=== PATIENT | male | born 1945 | race Caucasian/White ===

== ENCOUNTER 2019-10-08 12:13 | Outpatient (CLI) | payer MEDICARE, SELFPAY ==
--- NOTE | ~2019-10-08 | MR_ITS ---
EXAMINATION: MR shoulder RT w con DATE: 10/08/2019 14:42 INDICATION: Right shoulder pain. TECHNIQUE: Magnetic resonance imaging (MRI) of the right shoulder was performed without intravenous c ontrast after intra-articular injection of contrast (MR arthrogram). Sequences included axial T1-weig hted FS FSE and T2-weighted FS FSE, coronal-oblique T1-weighted FS FSE and T2-weighted FS FSE, sagitt al-oblique T1-weighted FSE and T2-weighed FS FSE, and ABER T1-weighted FS FSE. COMPARISON: Right shoulder radiographs 04/03/2019 FINDINGS: Coracoacromial arch: The acromion undersurface is flat in morphology (type I). There are changes of distal clavicle resect ion and acromioplasty. There is a large volume of fluid in the subacromial/subdeltoid bursa. Rotator cuff: There is severe supraspinatus and infraspinatus tendinopathy with extensive partial thickness tearing . There is a full-thickness tear of the conjoined portion of the tendon measuring 7 mm anterior to po sterior by 1.6 cm proximal to distal. Teres minor tendon is normal. Subscapularis tendon demonstrates severe tendinopathy distally where there is an interstitial tear of the superior tendon with medial displacement of the biceps tendon into the tear. There is mild fatty atrophy of supraspinatus and inf raspinatus muscle bellies. Biceps tendon and glenoid labrum: There is severe tendinopathy and partial tear of biceps tendon, which is medially displaced into the subscapularis tendon tear. There is degeneration of the glenoid labrum without well-defined tear. Fluid: The glenohumeral joint is well distended. MultiHance is not detectable in the fluid, likely an error in injectate preparation. Bones/cartilage: The glenoid cartilage is normal. Humeral head cartilage is normal. IMPRESSION: 1. Severe rotator cuff tendinopathy with full-thickness tear of supraspinatus and infraspinatus tendo ns and partial tear of subscapularis tendon. 2. Severe tendinopathy and partial tear of proximal biceps tendon, which is medially displaced into t he subscapularis tendon tear. Reviewed, dictated and finalized at location A. WORKER IMPRESSION: 1. Severe rotator cuff tendinopathy with full-thickness tear of supraspinatus a nd infraspinatus tendons and partial tear of subscapularis tendon. 2. Severe tendinopathy and partial tear of proximal biceps tendon, which is med ially displaced into the subscapularis tendon tear.
--- NOTE | ~2019-10-08 | XR_ITS ---
EXAMINATION: XR fl inj shoulder RT - MR/CT DATE: 10/08/2019 14:09 INDICATION: Right shoulder pain. History of rotator cuff repair. TECHNIQUE: A time-out was performed to verify the patient's name, date of , and procedure to b e performed. The procedure including the risks, benefits, and alternatives was discussed with the pat ient. Risks discussed included bleeding and infection. The patient understood the risks and agreed to proceed. The skin overlying the right shoulder joint was prepped and draped in usual sterile fashion . Anesthetic was administered with 1% lidocaine subcutaneously. A 22 G needle was advanced under fl uoroscopic guidance into the joint. Subsequently, injectate consisting of 12 mL of 1:200 Multihance, 1:4 1% lidocaine, and 1:4 Omnipaque 240 was instilled. The needle was removed and the entry site wa s cleaned and dressed. There were no immediate complications. Fluoroscopy exposure time was 0.0 aicha albert. The total number of images was 2. FINDINGS: Real-time fluoroscopy demonstrates the needle and contrast in the right glenohumeral joint. IMPRESSION: 1. Successful right glenohumeral joint injection of contrast for subsequent MR arthrography. Reviewed, dictated and finalized at location A. ER SERVICE 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
== END 2019-10-08 12:14 | disposition home or self-care (01) ==
LOC: ANHIMG 12:30
PROVIDERS: PCP Internal Medicine; Visit Provider Orthopaedic Surgery
DX: M75.101 Unspecified rotator cuff tear or rupture of right shoulder, not specified as traumatic (principal)
CPT/HCPCS: 23350; 73222; 77002; A9577; Q9966

== ENCOUNTER 2019-10-15 00:41 | Day surgery (SDC) | payer MEDICARE, SELFPAY ==
[2019-10-12 10:55] VITALS: BMI 31.5
[2019-10-15] VITALS (7 sets, daily range): BP systolic 126–140; BP diastolic 64–71; PULSE 78–88; RESP 16–18; TEMP 36.2–36.7; O2SAT 93–98
[2019-10-15] MEDS: LACTATED RINGERS 1,000 ML 30 ML IV CONT ×2 (06:45→08:51)
--- NOTE | 2019-10-15 07:11 | WPDANESEPPF ---
Anes - Initial Pre Proc Eval Procedure: Operation Date: 10/15/19 07:30 Proposed Procedures p Right Shoulder Arthroscopy with Debridement - Ventura Olvera MD Date/Time: 10/15/19 07:11 Surgeon: Ventura Olvera MD Pre Op Diagnosis: Right shoulder rotator cuff tear Patient Data Age: 74 Gender: M Height: 1.78 m Weight: 99.8 kg Allergies Allergy/AdvReac Type Severity Reaction Status Date / Time No Known Allergies Allergy Verified 10/15/19 06:27 Home Medications Medication Instructions Recorded Confirmed Type atorvastatin 80 mg tablet 80 mg PO DAILY #90 tablet 08/27/19 10/15/19 Rx niacin 500 mg tablet 500 mg PO DAILY #90 tablet 08/27/19 10/15/19 Rx aspirin 81 mg tablet,delayed 81 mg PO DAILY 10/10/19 10/15/19 History release ezetimibe 5 mg PO DAILY 10/12/19 10/15/19 History Patient hx anesthesia problems: none Family hx anesthesia problems: none [facility] Past Medical History Medical History (Updated 10/15/19 @ 07:10 by Capo Paris DO) Actinic keratoses High cholesterol History of basal cell carcinoma (BCC) History of bladder cancer Skin cancer Surgical History Surgical History History of rotator cuff surgery Bilateral - Dr Rene Social History Social History Smoking status: Former smoker Additional smoking assessment comments: Smoked for 30 years Alcohol intake: current Additional living arrangements comments: [place] Gender identity (if verbalized by the patient): Male Anes - Eval Final PreProcedure Day of Procedure 10/15/19 07:11 Patient weight: obese Heart: regular rate and rhythm Lungs: clear to auscultation and normal air movement Airway: Mallampati scale class III Neurological: alert and oriented Last oral intake: >/= 8 hours ASA classification: III Emergent: no Anesthetic plan: proceed Anesthesia type and monitoring: general ETT and standard monitoring Informed Consent: The patient's anesthetic plan and its attendant risks and benefits were discussed with the patient/family/POA. Questions were solicited and answers provided to the satisfaction of the patient/family/POA.
--- NOTE | 2019-10-15 07:13 | WPDHPUPDATE1 ---
History and Physical Update Update Date/Time: 10/15/19 07:13 History and Physical has been reviewed, including an updated exam of the patient. There are NO changes in the patient's condition. Risks, benefits, and alternatives have been discussed and questions answered. Patient agrees to proceed with procedure.
--- NOTE | 2019-10-15 07:23 | SUR.PREOP ---
Discussed ekg with dr barron. Says ekg from january 2018 is ok, no need to repeat.
[2019-10-15] MEDS: ceFAZolin 2 GM/D5W 50 ML 2 GM/50 ML BAG IVPB (07:27)
--- NOTE | 2019-10-15 07:51 | WPDANESPNB ---
Anes - Peripheral Nerve Block Date/Time: 10/15/19 07:51 I have discussed with the patient/family/POA the placement of a peripheral nerve block for post-operative pain management, including associated risks, benefits, complications, and side effects. Alternative methods of post-operative analgesia were detailed. Questions were solicited and answers provided to the satisfaction of the patient/family/POA. Time-Out: A pre-procedural Time-Out was completed immediately before starting the procedure and confirmed: Patient Identification, Site, Procedure, Patient Position and the Availability of Requisite Equipment. Clinical Indications: Acute post-operative pain management requested by the operative surgeon. Nerve Block Insertion Note Anes-nerve block: interscalene right Patient position: supine Skin prep: chlorhexidine Needle: 22 gauge, stimulating, insulated echogenic needle. Needle length: 50 mm Technique: ultrasound Injectate: bupivacaine 0.5% with epi 5 mcg/ml (30cc) Observations: tolerated well Complications: none Procedure start time:: 719 Procedure end time:: 722
[2019-10-15] MEDS: KETOROLAC 15 MG/ML VIAL (*BKC) IV PUSH (08:12)
[2019-10-15] MEDS: BUPIVACAINE/EPINEPHRINE 0.25% 10 ML VIAL 20 ML INFILTRATE (08:21)
--- NOTE | 2019-10-15 08:58 | P.OP_ITS ---
Procedure Note - Detailed Date of procedure: 10/15/19 Pre-op diagnosis: Right shoulder rotator cuff tear Chronic deficiency right rotator cuff Post-op diagnosis: same Procedure performed: Right shoulder arthroscopy with extensive debridement Description of procedure: The patient was identified and proper site identified. In the preop holding area and his used a performed a right upper extremity block. He was then taken to the operating, transferred to the OR table and after general anesthetic induction and intubation placed into the semi beach chair position in the usual manner for a right shoulder procedure. His has was secured taking care to neither rotate or extend the head neck. The right upper extremity was prepped and draped free in the usual sterile fashion. 30 cc of 1 to 310552 epinephrine and saline solution was injected into the subacromial space. 10 cc of 0.25% Marcaine and epinephrine solution was injected in the area of the portals. Posterior portal was established and under direct vi sualization anterior outflow was created. There was extensive significant degenerative changes within the shoulder joint involving the articular surfaces as well as the labrum. There is obvious tear of 50% or better of the rotator cuff with significant retraction almost to the level of the glenoid. This was not very mobile. The scope and outflow were then repositioned in the subacromial space and a lateral working portal was created. Extensive debridement was carried out with shaver and ArthroCare Wand. There was some spurring on the undersurface of the acromion and this was rasped smooth as well. The entire surgical area was irrigated with saline solution and the equipment was removed. Portals were closed with three 0 nylon suture and sterile dressings applied. He tolerated the procedure well. He was awakened, extubated and taken to recovery area in stable condition. There were no known intraoperative complications. Estimated blood loss was negligible. He received perioperative antibiotics. Anesthesia: GLMA and regional Surgeon: Ventura Olvera MD Licensed Electrician: Josue Young Estimated blood loss (mL): 5 Drains: No Packing: No Pathology: none sent Complications: No immediate complications Condition: stable Disposition: PACU
--- NOTE | 2019-10-15 09:23 | SUR.PHASEI ---
0923; PT AWAKE AND ALERT. TALKATIVE. READY TO SEE FAMILY. MEETS DISCHARGE CRITERIA.
== END 2019-10-15 10:15 | disposition home or self-care (01) ==
PROVIDERS: PCP Internal Medicine; Visit Provider Orthopaedic Surgery
PROC: (CPT 29805; principal; 2019-10-15 07:30)
DX: M75.101 Unspecified rotator cuff tear or rupture of right shoulder, not specified as traumatic (principal); G89.18 Other acute postprocedural pain; E78.00 Pure hypercholesterolemia, unspecified; Z85.51 Personal history of malignant neoplasm of bladder; Z85.828 Personal history of other malignant neoplasm of skin; Z79.82 Long term (current) use of aspirin; Z87.891 Personal history of nicotine dependence; E66.9 Obesity, unspecified; Z68.31 Body mass index [BMI] 31.0-31.9, adult
CPT/HCPCS: 29823; 64415; J0131; J0690; J1100; J1170; J1885; J2250; J2370; J2405; J2704; J3010; J7120

== ENCOUNTER 2019-10-31 07:29 | Outpatient (CLI) | payer MEDICARE, SELFPAY ==
--- NOTE | ~2019-10-31 | CT_ITS ---
EXAMINATION: CT abdomen pelvis wo/w con DATE: 10/31/2019 08:20 INDICATION: History of bladder cancer TECHNIQUE: Computed tomography (CT) of the abdomen and pelvis was performed without intravenous contr ast. CT of the abdomen and pelvis was then performed with a total of 130 mL Omnipaque 350 intravenous contrast using a double-bolus technique for simultaneous opacification of the renal parenchyma and r enal collecting system. The dose-length product (DLP) was 1928.83 mGy-cm. Maximum intensity projectio n 3D-reconstructions of the collecting system were created by the technologist at a separate workstat ion. Automated exposure control and iterative reconstruction technique were employed. COMPARISON: 02/03/2018 FINDINGS: Minimal dependent atelectasis is present in the lung bases. The heart size is normal. Punct ate calcifications in otherwise normal appearing liver and spleen likely represent healed granulomato us disease. There is a small sliding hiatal hernia. The pancreas, gallbladder, and adrenal glands are normal. A 2 mm nonobstructing stone of the left kidney upper pole and a 2 mm nonobstructing stone of the right mid kidney. There is a 1.3 cm cyst of the right kidney. There is been interval resection o r treatment of the previously described bladder mass. No suspicious renal or urothelial lesion is alex ntified. A retroaortic right renal vein is noted. No pathologically enlarged abdominal or pelvic lymp h nodes are identified. There is no free intraperitoneal gas or evidence of bowel obstruction. A mode rate volume of colonic stool is present. There is mild lumbar spondylosis. IMPRESSION: 1. Interval treatment of the previously described bladder mass without suspicious renal or urothelial lesion identified. 2. Bilateral nephrolithiasis. Reviewed, dictated and finalized at location A. IMPRESSION: 1. Interval treatment of the previously described bladder mass without suspicio us renal or urothelial lesion identified. 2. Bilateral nephrolithiasis.
[2019-10-31 08:01] LABS: Estimated Glomerular Filt Rate > 60
== END 2019-10-31 07:30 | disposition home or self-care (01) ==
PROVIDERS: PCP Internal Medicine; Visit Provider Urology
DX: C67.9 Malignant neoplasm of bladder, unspecified (principal); N20.0 Calculus of kidney
CPT/HCPCS: 36415; 74178; Q9967

== ENCOUNTER → 2021-08-04 10:15 | Outpatient (REF) | payer MEDICARE, SELFPAY | LOC: ANHLAB 10:15 | PROVIDERS: PCP Internal Medicine; Visit Provider Nurse Practitioner | DX: C44.319 Basal cell carcinoma of skin of other parts of face (principal) | CPT/HCPCS: 88305 ==

== ENCOUNTER → 2021-09-28 07:19 | Outpatient (REF) | payer MEDICARE, SELFPAY | LOC: ANHLAB 07:19 | PROVIDERS: PCP Internal Medicine; Visit Provider Nurse Practitioner | DX: C44.319 Basal cell carcinoma of skin of other parts of face (principal) | CPT/HCPCS: 88305; 88331 ==

== ENCOUNTER 2022-08-10 12:18 | Outpatient (NON) | payer MEDICARE, SELFPAY | END 2022-08-10 12:19 | disposition home or self-care (01) | PROVIDERS: PCP Internal Medicine; Visit Provider Nurse Practitioner | DX: D49.2 Neoplasm of unspecified behavior of bone, soft tissue, and skin (principal); L81.4 Other melanin hyperpigmentation | CPT/HCPCS: 88305 ==

== ENCOUNTER 2023-06-30 13:19 | Outpatient (CLI) | payer MEDICARE, SELFPAY ==
--- NOTE | ~2023-06-30 | XR_ITS ---
EXAMINATION: XR abdomen/kub 1V DATE: 06/30/2023 13:56 INDICATION: Gross hematuria TECHNIQUE: A supine view of the abdomen on 2 radiographs was obtained. COMPARISON: CT dated 10/31/2019 FINDINGS: No dilated loops of gas-filled bowel to suggest obstruction. No definitive urolithiasis. Couple uncha nged small phleboliths in the pelvis. Mild to moderate lumbar spondylosis. Bone islands at the right femoral head and neck. Mild bilateral hip and sacroiliac osteoarthritis. IMPRESSION: 1. No evident urolithiasis. Reviewed, dictated and finalized at location A. 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 No evident urolithiasis.
--- NOTE | ~2023-06-30 | CT_ITS ---
EXAMINATION: CT abdomen pelvis wo/w con DATE: 06/30/2023 14:22 INDICATION: Gross hematuria. TECHNIQUE: Computed tomography (CT) of the abdomen and pelvis was performed without and with intraven ous contrast using a total of 130 mL Omnipaque-350 intravenous contrast with a double-bolus technique for simultaneous opacification of the renal parenchyma and renal collecting system. Automated exposu re control and iterative reconstruction technique were employed. The dose-length product was 1675.82 mGy-cm. COMPARISON: CT abdomen and pelvis 10/31/2019, 02/03/18 FINDINGS: The visualized portions of the lung bases demonstrate mild atelectasis and mild chronic interstitial lung disease. No pleural effusion. The heart size is normal. There are coronary artery calcifications . No pericardial effusion. Calcified right hilar lymph nodes are consistent with old granulomatous di sease. Calcifications in the liver and spleen are consistent with old granulomatous disease. The gall bladder, pancreas, and adrenal glands are normal. There are cysts in the kidneys measuring up to 15 m m on the right. There is a 2 mm stone in left kidney. The ureters are normal in size. Left ureter is not well opacified distally. There is a 6.0 x 2.0 cm enhancing mass in the bladder on the left, consi stent with urothelial carcinoma. The prostate is severely enlarged. There are bilateral inguinal tu ias containing fat. There is diverticulosis of the colon without evidence of diverticulitis. The appe ndix is not visualized. There is mild aortic atherosclerosis. There are no pathologically enlarged ly mph nodes. There is no free intraperitoneal fluid. There is moderate lumbar spondylosis. IMPRESSION: 1. Recurrent left-sided bladder mass, consistent with urothelial carcinoma. 2. Small nonobstructing left kidney stone. Reviewed, dictated and finalized at location A. RIOR HORTICULTURIST
[2023-06-30 14:05] LABS: Estimated Glomerular Filt Rate > 60
== END 2023-06-30 13:20 | disposition home or self-care (01) ==
LOC: ANHIMG 13:30
PROVIDERS: PCP Nurse Practitioner; Visit Provider Nurse Practitioner Adult Health
DX: R31.0 Gross hematuria (principal); N20.0 Calculus of kidney
CPT/HCPCS: 74018; 74178; Q9967

== ENCOUNTER 2023-08-11 14:23 | Outpatient (NON) | payer MEDICARE, SELFPAY | END 2023-08-11 14:24 | disposition home or self-care (01) | PROVIDERS: PCP Nurse Practitioner; Visit Provider Nurse Practitioner | DX: D48.5 Neoplasm of uncertain behavior of skin (principal) | CPT/HCPCS: 88305 ==

== ENCOUNTER 2023-08-26 08:53 | Outpatient (CLI) | payer MEDICARE, SELFPAY ==
--- NOTE | 2023-08-26 09:42 | ECG_ITS ---
Measurements Intervals [place] Rate: 68 P: -58 [place]: 134 QRS: 64 QRSD: 129 T: 30 QT: 417 QTc: 446 Interpretive Statements SINUS OR ECTOPIC ATRIAL RHYTHM RIGHT BUNDLE BRANCH BLOCK BASELINE ARTIFACT- I, II, III, AVL, AVF ABNORMAL ECG NO PREVIOUS ECG AVAILABLE FOR COMPARISON Electronically Signed On 08-26-2023 10:27:19 CORONARY CLINICAL SPECIALIST by Martin Toro D.O.
== END 2023-08-26 08:54 | disposition home or self-care (01) ==
PROVIDERS: PCP Nurse Practitioner; Visit Provider Anesthesiology
DX: E78.2 Mixed hyperlipidemia (principal); Z01.818 Encounter for other preprocedural examination; I45.10 Unspecified right bundle-branch block
CPT/HCPCS: 93005

== ENCOUNTER 2023-08-30 07:00 | Outpatient (NON) | payer MEDICARE, SELFPAY | END 2023-08-30 07:01 | disposition home or self-care (01) | LOC: ANHLAB 08-31 12:06 | PROVIDERS: PCP Nurse Practitioner; Visit Provider Nurse Practitioner | DX: L72.0 Epidermal cyst (principal) | CPT/HCPCS: 88304 ==

== ENCOUNTER 2023-09-01 03:31 | Day surgery (SDC) | payer MEDICARE, SELFPAY ==
[2023-08-26 08:20] VITALS: BMI 29.3
--- NOTE | 2023-08-26 08:27 | PC.NURSE ---
PRE-OP INSTRUCTIONS, PLEASE READ CAREFULLY Report to the Outpatient Waiting Room, entrance under the green pavilion located off [facility], at time _1200_ on date _09/01/23_. Planned Procedure Time: _2 PM_. Time changes happen often and if your time is changed the preop area will call you the afternoon before. - You and your visitor will be asked to self-screen and do not enter if you have any COVID symptoms. - A mask is optional within the hospital at this time. Patients may have clear liquids (water, carbonated beverages, clear teas, apple juice) until 3 hours prior to surgery (1100 AM) with a maximum of 20 ounces. - No food from midnight until time of surgery Take the following medications with a SIP of water the morning of surgery: _NONE_ DO NOT STOP ANY OF YOUR OTHER PRESCRIPTION MEDICATIONS PRIOR TO SURGERY ?EXCEPT THE FOLLOWING Medications to discontinue per DR. VIDALSE - _ASPIRIN, PATIENT STATES ALREADY STOPPING, last dose taken 08/25/23_ Please no make-up, nail welsh, hairspray, perfume, deodorant, or body powder the day of surgery. No jewelry (including any body piercings) or valuables the day of surgery, leave them at home. Please take a shower or bath the night before, or the morning of, surgery with an antibacterial soap. Wear comfortable, loose fitting clothing. - Jewelry must be removed prior to entering the operating room. Rings and piercings that are not removed may be cut off. - The hospital will not accept responsibility for valuables. - Please leave all valuables, including medications, at home the day of surgery. If you are going home after surgery, a licensed water truck driver must drive you home. - NO public transportation without another adult if you receive anesthesia. - We recommend that an adult stay with you for 24 hours following discharge. - We also recommend that you do not drive, make important decision, drink alcoholic beverages, or take any drugs that were not prescribed by your health care provider for at least 24 hours after your discharge time. Follow any additional instructions given to you from your surgeon. If you or anyone in your household have experienced Covid symptoms in the past week, please notify your surgeon or the nurse liaison at the phone number below for possible testing. Telephone instructions given to _PATIENT_and asked if any additional questions and then verbalized understanding. Patient advised to call surgeon office or pre surgery nurse liaison [phone] if any additional questions.
--- NOTE | 2023-08-31 12:31 | WPDANESEPPF ---
Anes - Initial Pre Proc Eval Procedure: Operation Date: 09/01/23 12:00 Proposed Procedures p Cystoscopy with Bladder Biopsy, - Oswald Orozco MD s Possible Trans Urethral Resection Bladder Tumor - Oswald Orozco MD Date/Time: 08/31/23 12:31 Surgeon: Oswald Orozco MD Pre Op Diagnosis: hx bladder CA Patient Data Age: 78 Gender: M Height: 1.78 m Weight: 92.72 kg Allergies Allergy/AdvReac Type Severity Reaction Status Date / Time No Known Allergies Allergy Verified 09/01/23 10:40 Home Medications Medication Instructions Recorded Confirmed Type aspirin 81 mg tablet,delayed 81 mg PO DAILY 10/10/19 09/01/23 History release (Adult Low Dose Aspirin) cholecalciferol (vitamin D3) 125 125 mcg PO DAILY 09/23/21 09/01/23 History mcg (5,000 unit) tablet atorvastatin 80 mg tablet See Rx Instructions .Route 04/13/23 09/01/23 Rx .COMPLEX #90 tabs ezetimibe 10 mg tablet 5 mg PO DAILY #90 tabs 04/13/23 09/01/23 Rx niacin 500 mg tablet See Rx Instructions .Route 04/13/23 09/01/23 Rx .COMPLEX #90 tabs Patient hx anesthesia problems: none Family hx anesthesia problems: none Results Review: All pre-operative results and documents have been reviewed as part of the pre-operative evaluation. [facility] Past Medical History Medical History Actinic keratoses High cholesterol History of basal cell carcinoma (BCC) History of bladder cancer Skin cancer Surgical History Surgical History History of arthroscopy of right shoulder arthroscopic debridement October 2019 History of rotator cuff surgery Bilateral - Dr Rene Social History Social History Smoking packs per day: 2 Smoking cigarettes per day: 40.0 Years smoked: 30 Smoking pack-years: 60.00 Smoking status: Former smoker Tobacco type: cigarettes Second hand tobacco smoke exposure: No Smoking end date: 08/15/93 Additional smoking assessment comments: Smoked for 30 years Alcohol intake: current Alcohol use details: Occasional Substance use: never Substance use type: does not use Lack of Transportation: No Lack of Food: Never True Current Housing: I Have Housing Concerned About Future Housing: No Difficulty Paying Gas/Electric Bills: No Difficulty Paying for Meds: No Currently Unemployed: No Education: High School Diploma/GED Difficulty w/ Childcare or Family Care: No Living arrangements: alone Additional living arrangements comments: [place] Occupation/Education: retired Gender identity (if verbalized by the patient): Male Spiritual care concerns: No Anes - Eval Final PreProcedure Day of Procedure 08/31/23 12:31 Patient weight: overweight Heart: regular rate and rhythm Lungs: clear to auscultation Airway: Mallampati scale class II Neurological: alert and oriented Last oral intake: >/= 8 hours ASA classification: III Emergent: no Anesthetic plan: proceed Anesthesia type and monitoring: general LMA and standard monitoring Results Review: All pre-operative results and documents have been reviewed as part of the pre-operative evaluation. Informed Consent: The patient's anesthetic plan and its attendant risks and benefits were discussed with the patient/family/POA. Questions were solicited and answers provided to the satisfaction of the patient/family/POA.
[2023-09-01] VITALS (8 sets, daily range): BP systolic 145–160; BP diastolic 68–80; PULSE 70–85; RESP 13–18; TEMP 36.4–36.6; O2SAT 94–100
--- NOTE | 2023-09-01 06:28 | WPDHPUPDATE1 ---
History and Physical Update Update Date/Time: 09/01/23 06:28 History and Physical has been reviewed, including an updated exam of the patient. There are NO changes in the patient's condition. Risks, benefits, and alternatives have been discussed and questions answered. Patient agrees to proceed with procedure.
[2023-09-01] MEDS: ceFAZolin 2 GM/D5W 50 ML 2 GM/50 ML BAG IVPB (12:45)
[2023-09-01] MEDS: LIDOCAINE HCL 2% GEL UROJET 10 ML PKG MUCOUS MEM (13:10)
[2023-09-01] MEDS: LACTATED RINGERS 1,000 ML 30 ML IV CONT ×2 (13:43→14:39)
--- NOTE | 2023-09-01 13:50 | W.PM.PROC2 ---
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 Cystoscopy was 1st undertaken with a 21 F rigid cystoscope. He has notable lateral lobe hyperplasia with a 3 cm prostatic urethra. There was a small median lobe. The bladder shows a large papillary neoplasm in the left anterior lateral bladder wall. It is somewhat broad-based but is not sessile in nature (having a characteristic low-grade papillary neoplasm). Using a loop electrode I resected this in its entirety with a attempt made to include detrusor muscle for pathological evaluation of invasion. All chips were evacuated from the bladder. I carefully reinspected the bladder and saw no additional areas of hyperemia or kala neoplasm. There was no significant bleeding from the resected bed. Resectoscope was removed and a 24-F 3 way catheter was placed to continuous irrigation. Efflux was clear at the termination of the procedure. Drains Yes Packing No Pathology None sent Complications No immediate complications
== END 2023-09-01 16:01 | disposition home or self-care (01) ==
PROVIDERS: PCP Nurse Practitioner; Visit Provider Urology
PROC: 0TBB8ZX Excision of Bladder, Via Natural or Artificial Opening Endoscopic, Diagnostic (ICD-10-PCS; CPT 52204; principal; 2023-09-01 12:00)
DX: C67.3 Malignant neoplasm of anterior wall of bladder (principal); N40.1 Benign prostatic hyperplasia with lower urinary tract symptoms; E78.00 Pure hypercholesterolemia, unspecified; I10 Essential (primary) hypertension; Z79.82 Long term (current) use of aspirin; Z98.890 Other specified postprocedural states; Z87.891 Personal history of nicotine dependence; Z85.51 Personal history of malignant neoplasm of bladder; Z85.828 Personal history of other malignant neoplasm of skin
CPT/HCPCS: 52240; 87086; 87147; 87181; 87186; 88108; 88305; 93005; J0690; J1100; J2405; J2704; J3010; J7120

== ENCOUNTER 2023-10-27 00:19 | Day surgery (SDC) | payer MEDICARE, SELFPAY ==
[2023-10-12 15:53] VITALS: BMI 28.8
--- NOTE | 2023-10-12 16:10 | PC.NURSE ---
Report to the Outpatient Waiting Room, entrance under the green pavilion located off [facility], at time __6:30AM on date ___10/27/23____. Planned Procedure Time: __8:30AM . Time changes happen often and if your time is changed the preop area will call you the afternoon before. - You and your visitor will be asked to self-screen and do not enter if you have any COVID symptoms. - A mask is optional within the hospital at this time. Patients may have clear liquids (water, carbonated beverages, clear teas, apple juice) until 3 hours prior to surgery with a maximum of 20 ounces. - No food from midnight until time of surgery. Take the following medications with a SIP of water the morning of surgery: ___NONE DO NOT STOP ANY OF YOUR OTHER PRESCRIPTION MEDICATIONS PRIOR TO SURGERY ?EXCEPT THE FOLLOWING Medications to discontinue per physician HOLD ASPIRIN 7 DAYS PRE-OP PER DR VIDALES PER PATIENT- LAST DOSE 10/19/23. HOLD ALL VITAMINS/SUPPLEMENTS 3 DAYS PRE-OP PER ANESTHESIA- LAST DOSE 10/23/23. Please no make-up, nail icelandic, hairspray, perfume, deodorant, or body powder the day of surgery. No jewelry (including any body piercings) or valuables the day of surgery, leave them at home. Please take a shower or bath the night before, or the morning of, surgery with an antibacterial soap. Wear comfortable, loose fitting clothing. - Jewelry must be removed prior to entering the operating room. Rings and piercings that are not removed may be cut off. - The hospital will not accept responsibility for valuables. - Please leave all valuables, including medications, at home the day of surgery. If you are going home after surgery, a licensed fast food delivery driver must drive you home. - NO public transportation without another adult if you receive anesthesia. - We recommend that an adult stay with you for 24 hours following discharge. - We also recommend that you do not drive, make important decision, drink alcoholic beverages, or take any drugs that were not prescribed by your health care provider for at least 24 hours after your discharge time. Follow any additional instructions given to you from your surgeon. If you or anyone in your household have experienced Covid symptoms in the past week, please notify your surgeon or the nurse liaison at the phone number below for possible testing. Telephone instructions given to ____PATIENT and asked if any additional questions and then verbalized understanding. Patient advised to call surgeon office or pre surgery nurse liaison [phone] if any additional questions.
--- NOTE | 2023-10-25 06:37 | PM.HPGS ---
History of Present Illness History of Present Illness Consent: Risks, benefits, and alternatives have been discussed and questions answered. Patient agrees to proceed with procedure. 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 On resection in August 2023 he was found to have muscle invasive disease. After discussion of options including cystectomy, chemoradiation and observation he elects 1st to proceed with bladder tumor re-resection. Review of Systems Review of Systems: All systems reviewed & are unremarkable except as noted in HPI and below PMFSH Past Medical History Medical History Actinic keratoses High cholesterol History of basal cell carcinoma (BCC) History of bladder cancer Skin cancer Surgical History Surgical History History of arthroscopy of right shoulder arthroscopic debridement October 2019 History of rotator cuff surgery Bilateral - Dr Rene Social History Social History Smoking packs per day: 2 Smoking cigarettes per day: 40.0 Years smoked: 43 Smoking pack-years: 86.00 Smoking status: Former smoker Tobacco type: cigarettes Second hand tobacco smoke exposure: No Smoking end date: 02/12/90 Additional smoking assessment comments: Smoked for 30 years Alcohol intake: current Alcohol use details: Occasional Substance use: never Substance use type: does not use Lack of Transportation: No Lack of Food: Never True Current Housing: I Have Housing Concerned About Future Housing: No Difficulty Paying Gas/Electric Bills: No Difficulty Paying for Meds: No Currently Unemployed: No Education: High School Diploma/GED Difficulty w/ Childcare or Family Care: No Living arrangements: alone Additional living arrangements comments: Cassandra Rivera Occupation/Education: retired Gender identity (if verbalized by the patient): Male Spiritual care concerns: No Meds Home Medications and Allergies Home Medications Medication Instructions Recorded Confirmed Type aspirin 81 mg tablet,delayed 81 mg PO DAILY 10/10/19 10/19/23 History release (Adult Low Dose Aspirin) cholecalciferol (vitamin D3) 125 125 mcg PO DAILY 09/23/21 10/19/23 History mcg (5,000 unit) tablet omeprazole 20 mg capsule,delayed 20 mg PO QAM 10/12/23 10/19/23 History release atorvastatin 80 mg tablet See Rx Instructions .Route 10/19/23 10/19/23 Rx .COMPLEX #90 tabs ezetimibe 10 mg tablet 5 mg PO DAILY #90 tabs 10/19/23 10/19/23 Rx Allergies Allergy/AdvReac Type Severity Reaction Status Date / Time No Known Allergies Allergy Verified 10/19/23 06:53 Exam Const: General: no acute distress Resp: Effort & Inspection: normal respiratory effort GI: Inspection: non-distended GI Palp: No abdominal tenderness and No Guarding due to palpation present (GI) Auscultation: normal bowel sounds Assessment and Plan Assessment and plan (1) Cancer of overlapping sites of bladder: Code(s): C67.8 - Malignant neoplasm of overlapping sites of bladder Status: Acute Assessment and Plan: Re-resection site of prior muscle invasive bladder cancer in the anterior lateral bladder wall Plan
--- NOTE | 2023-10-26 10:36 | WPDANESEPPF ---
Anes - Initial Pre Proc Eval Procedure: Operation Date: 10/27/23 08:30 Proposed Procedures p Re-Resection Bladder Tumor - Oswald Orozco MD Date/Time: 10/26/23 10:36 Surgeon: Oswald Orozco MD Pre Op Diagnosis: Bladder Cancer Patient Data Age: 78 Gender: M Height: 1.78 m Weight: 91 kg Allergies Allergy/AdvReac Type Severity Reaction Status Date / Time No Known Allergies Allergy Verified 10/19/23 06:53 Home Medications Medication Instructions Recorded Confirmed Type aspirin 81 mg tablet,delayed 81 mg PO DAILY 10/10/19 10/27/23 History release (Adult Low Dose Aspirin) cholecalciferol (vitamin D3) 125 125 mcg PO DAILY 09/23/21 10/27/23 History mcg (5,000 unit) tablet omeprazole 20 mg capsule,delayed 20 mg PO QAM 10/12/23 10/27/23 History release atorvastatin 80 mg tablet See Rx Instructions .Route 10/19/23 10/27/23 Rx .COMPLEX #90 tabs ezetimibe 10 mg tablet 5 mg PO DAILY #90 tabs 10/19/23 10/27/23 Rx Patient hx anesthesia problems: none Family hx anesthesia problems: none Results Review: All pre-operative results and documents have been reviewed as part of the pre-operative evaluation. [facility] Past Medical History Medical History Actinic keratoses High cholesterol History of basal cell carcinoma (BCC) History of bladder cancer Skin cancer Surgical History Surgical History History of arthroscopy of right shoulder arthroscopic debridement October 2019 History of rotator cuff surgery Bilateral - Dr Rene Social History Social History Smoking packs per day: 2 Smoking cigarettes per day: 40.0 Years smoked: 43 Smoking pack-years: 86.00 Smoking status: Former smoker Tobacco type: cigarettes Second hand tobacco smoke exposure: No Smoking end date: 02/12/90 Additional smoking assessment comments: Smoked for 30 years Alcohol intake: current Alcohol use details: Occasional Substance use: never Substance use type: does not use Lack of Transportation: No Lack of Food: Never True Current Housing: I Have Housing Concerned About Future Housing: No Difficulty Paying Gas/Electric Bills: No Difficulty Paying for Meds: No Currently Unemployed: No Education: High School Diploma/GED Difficulty w/ Childcare or Family Care: No Living arrangements: alone Additional living arrangements comments: Cassandra Rivera Occupation/Education: retired Gender identity (if verbalized by the patient): Male Spiritual care concerns: No Anes - Eval Final PreProcedure Day of Procedure 10/26/23 10:36 Patient weight: overweight Heart: regular rate and rhythm Lungs: clear to auscultation Airway: Mallampati scale class II Neurological: alert and oriented Last oral intake: >/= 8 hours ASA classification: III Emergent: no Anesthetic plan: proceed Anesthesia type and monitoring: general LMA and standard monitoring Results Review: All pre-operative results and documents have been reviewed as part of the pre-operative evaluation. Informed Consent: The patient's anesthetic plan and its attendant risks and benefits were discussed with the patient/family/POA. Questions were solicited and answers provided to the satisfaction of the patient/family/POA.
[2023-10-27] VITALS (7 sets, daily range): BP systolic 130–166; BP diastolic 68–81; PULSE 60–76; RESP 12–18; TEMP 36.4–36.7; O2SAT 94–99
--- NOTE | 2023-10-27 06:20 | WPDHPUPDATE1 ---
History and Physical Update Update Date/Time: 10/27/23 06:20 History and Physical has been reviewed, including an updated exam of the patient. There are NO changes in the patient's condition. Risks, benefits, and alternatives have been discussed and questions answered. Patient agrees to proceed with procedure.
[2023-10-27] MEDS: LACTATED RINGERS 1,000 ML 30 ML IV CONT ×2 (07:00→09:08)
[2023-10-27] MEDS: ceFAZolin 2 GM/D5W 50 ML 2 GM/50 ML BAG IVPB (08:34)
[2023-10-27] MEDS: LIDOCAINE HCL 2% GEL UROJET 10 ML PKG MUCOUS MEM (09:00)
--- NOTE | 2023-10-27 09:04 | P.OP_ITS ---
Procedure Note - Detailed Date of Procedure 10/27/23 Pre-op Diagnosis Bladder Cancer Post-op Diagnosis Same Procedure Performed Repeat resection bladder tumor base Surgeon Oswald Orozco MD Anesthesia General Description of Procedure patient is brought to the operative suite was prepped draped in routine sterile fashion while in dorsal lithotomy position after the uneventful induction of a general LMA anesthetic. Cystoscopy undertaken with a 24 F rigid cystoscope. He has significant lateral lobe hyperplasia of the prostate with a 3 cm prostatic urethra. There was a small median lobe. The bladder was trabeculated. With the exception of the area of prior urothelial neoplasm in the left anterior b ladder wall near the dome the bladder mucosa is perfectly normal without hyperemia. There was no intravesical foreign body or neoplasm Other as described above. Said the previous bladder tumor is resected aggressively with attempt made to include detrusor muscle for pathological evaluation of invasion. There was some gross recurrent neoplasm that appeared papillary. Base and periphery was cauterized. The bladder was emptied and the patient was taken recovery room good condition. Drains No Packing No Pathology Yes Complications No immediate complications
== END 2023-10-27 10:30 | disposition home or self-care (01) ==
PROVIDERS: PCP Nurse Practitioner; Visit Provider Urology
PROC: 0TBB8ZZ Excision of Bladder, Via Natural or Artificial Opening Endoscopic (ICD-10-PCS; CPT 52235; principal; 2023-10-27 08:30)
DX: C67.3 Malignant neoplasm of anterior wall of bladder (principal); E78.00 Pure hypercholesterolemia, unspecified; Z79.82 Long term (current) use of aspirin; Z98.890 Other specified postprocedural states; Z87.891 Personal history of nicotine dependence; Z85.828 Personal history of other malignant neoplasm of skin; Z85.51 Personal history of malignant neoplasm of bladder
CPT/HCPCS: 52235; 88305; J0690; J1100; J2405; J2704; J3010; J7120

== ENCOUNTER 2024-11-16 08:11 | Outpatient (CLI) | payer MEDICARE, SELFPAY ==
--- NOTE | ~2024-11-16 | CT_ITS ---
CT of the Abdomen and Pelvis: Indication: Bladder cancer Technique: 2.5 mm axial scans were obtained through the abdomen and pelvis prior to and following in travenous administration of 130 cc of Omnipaque 350. Dose reduction technique was used on this scan b y utilizing automated exposure control and iterative reconstruction technique. The dose-length produc t (DLP) was 1927.58 mGy-cm. COMPARISON: 06/30/2023 Findings: Scans through the lung bases are unremarkable. The liver, spleen, pancreas, gallbladder, adrenals and kidneys are within normal limits. There are at herosclerotic calcifications of the aorta. No lymphadenopathy. No bowel obstruction or bowel wall thickening. There is no evidence to suggest acute appendicitis. Images through the pelvis were performed. There is mild diffuse urinary bladder wall thickening and/o r trabeculation. Anterior bladder diverticulum present. Prostate gland is enlarged. Small bilateral f at-containing inguinal hernias are present. No ascites. Impression: Probable cystitis and/or other chronic bladder wall trabeculation. Minimal recurrent or residual dise ase is difficult to completely excluded given the underlying diffuse wall thickening. Anterior bladde r diverticulum. Enlarged prostate gland. Small bilateral fat-containing inguinal hernias. Reviewed, dictated and finalized at location . Impression: Probable cystitis and/or other chronic bladder wall trabeculation. Minimal recu rrent or residual disease is difficult to completely excluded given the underly ing diffuse wall thickening. Anterior bladder diverticulum. Enlarged prostate gland. Small bilateral fat-containing inguinal hernias.
--- OUTSIDE RECORDS SUMMARY | 2024-11-16 08:18 | XMS_ITS | Clinical Summary ---
Author Organization [facility] Address [address] [place] [address] Care Team Providers Care Energy Sales Broker Name Role Phone Lonnie Luque NP Primary Care Provider [phone] Allergies No known active allergies Medications EZETIMIBE OR Take 5 mg by mouth daily. Active atorvastatin (LIPITOR) 80 MG tablet Take 1 tablet (80 mg total) by mouth nightly at bedtime. Active niacin CR (NIASPAN) 500 MG tablet Take 2 tablets (1,000 mg total) by mouth daily with supper. Active Immunizations Name Administration Dates Next Due MODERNA COVID-19 (12+) MRNA, LNP-S, PF, 100 MCG/ 0.5 ML DOSE 10/10/2020,09/12/2020 Social History Tobacco Use Types Packs/Day Years Used Date Smoking Tobacco: Never Smokeless Tobacco: Never Tobacco Cessation:Counseling Given: Not Answered Alcohol Use Standard Drinks/Week Comments Not Currently 0 (1 standard drink = 0.6 oz pur e alcohol) Sex and Gender Information Value Date Recorded Sex Assigned at Not on file Legal Sex Male 6:00 PM CDT Gender Identity Not on file Sexual Orientation Not on file Last Filed Vital Signs Vital Sign Reading Time Taken Comments Blood Pressure 131/77 01/28/2023 4:30 PM CDT Pulse 63 01/28/2023 4:30 PM CDT Temperature 36.4 C (97.5 F) 01/28/2023 4:30 PM CDT Respiratory Rate 16 01/28/2023 4:30 PM CDT Oxygen Saturation 99% 01/28/2023 4:30 PM CDT Inhaled Oxygen Concentration - - Weight 102.1 kg (225 lb) 01/28/2023 2:25 PM CDT Height 177.8 cm (5' 10 ) 01/28/2023 2:25 PM CDT Body Mass Index 32.28 01/28/2023 2:25 PM CDT Plan of Treatment Health Maintenance Due Date Last Done Comments DTaP, Tdap and Td Vaccines ( 1 - Tdap) 1962 Zoster Vaccines (1 of 2) 1993 Annual Medicare Wellness Visit 2008 Pneumococcal Vaccine: 65+ Years (2 of 2 - PPSV23 or PCV20) 09/02/2017 09/02/2016 RSV Immunization or 60+ Years (1 - 1-dose 75+ series) 2018 COVID-19 Vaccine (3 - 2023-2 5 season) 2024 10/10/2020, 09/12/2020 Influenza Adult (#1) 2024 05/04/2020 Meningococcal B Vaccine Aged Out No l onger eligible based on patient's age to complete this topic Meningococcal Vaccine Aged Out No perez rosalio eligible based on patient's age to complete this topic RSV Immunizations Under 20 Months Aged Out No longer eligible b ased on patient's age to complete this topic Insurance [facility] Care Teams Energy Sales Broker Relationship Specialty Start Date End Date Lonnie Luque NP PCP - General NURSE PRACTITIONER 01/28/23
--- OUTSIDE RECORDS SUMMARY | 2024-11-16 08:18 | XMS_ITS | Clinical Summary ---
Author Organization [facility] Address [address] [place] [id number] Care Team Providers Care Dehydrogenation Supervisor Name Role Phone Henry Ho DO Primary Care Provider [phone] Allergies No known active allergies Medications atorvastatin (LIPITOR) 80 mg tabletIndicatio ns:hyperlipidem ia Take 80 mg by mouth every morning 02/25/20 20 Active EZETIMIBE ORAL Take 5 mg by mouth every morning Active niacin 500 mg tabletIndicatio ns:heart Take 500 mg by mouth nightly Active acetaminophen (TYLENOL) 325 mg tablet Take 2 tablets (650 mg total) by mouth every 6 (six) hours as needed for pain 100 tablet 1 06/13/20 20 Active Additional Information Patient not taking.Informant: Self, Reported on 10/30/2020 docusate sodium (COLACE) 100 mg capsuleIndicati ons:constipatio n Take 1 capsule (100 mg total) by mouth 2 (two) times a day HOLD if having diarrhea or loose stools 30 capsule 1 06/13/20 20 Active amoxicillin (AMOXIL) 500 mg tablet/capsule TAKE FOUR TABLETS/CAPSULES 1 HOUR PRIOR TO DENTAL PROCEDURE 8 tablet/caps ule 09/08/19 21 Active Additional Information Patient not taking.Reported on 10/30/2020 aspirin 81 mg enteric coated tabletIndicatio ns:Myocardial Reinfarction Prevention Take 81 mg by mouth nightly Active HYDROcodone-christiano taminophen (NORCO) 5-325 mg per tabletIndicatio ns:Pain Take 1 tablet by mouth every 6 (six) hours as needed for pain 10 tablet 09/29/19 21 Active Additional Information Patient not taking.Reported on 10/30/2020 triamcinolone (Kenalog) 10 mg/mL injection Kenalog 10 mg/mL suspension for injection In office injection administered by the provider Active predniSONE (DELTASONE) 10 mg tablet prednisone 10 mg tablet TAKE 1 TAB BY MOUTH THREE TIMES DAILY FOR 3 DAYS 1 TAB TWICE DAILY FOR 2 DAYS THEN 1 TAB ONCE DAILY FOR 1 DAY. Active lisinopriL (PRINIVIL,ZESTR IL) 20 mg tablet lisinopril 20 mg tablet Active lidocaine (XYLOCAINE) 10 mg/mL (1 %) injection lidocaine (PF) 10 mg/mL (1 %) injection solution In office injection administered by the provider Active levoFLOXacin (LEVAQUIN) 500 mg tablet levofloxacin 500 mg tablet Active influenza trivalent (Fluzone High-Dose 2018-, PF,) 180 mcg/0.5 mL syringe Fluzone High-Dose (PF) 180 mcg/0.5 mL intramuscular syringe Act carlos cefuroxime (CEFTIN) 250 mg tablet cefuroxime axetil 250 mg tablet Active benzonatate (TESSALON) 200 mg capsule benzonatate 200 mg capsule Active predniSONE (DELTASONE) 10 mg tablet pack prednisone 10 mg tablets in a dose pack Take 1 tab by mouth, 3 times a day for 3 daysTake 1 tab by mouth 2 times a day for 2 daysTake 1 tab by mouth once a day for 1 day Active methylPREDNISol one (MEDROL DOSEPACK) 4 mg Dosepack methylprednisolone 4 mg tablets in a dose pack Active Active Problems Problem Noted Date Diagnosed Date Cubital tunnel syndrome on right 09/19/2020 Overview (09/19/2020): Added automatically from request for surgery [id number] HLD (hyperlipidemia) 06/10/2020 Risk factors for obstructive sleep apnea 020 Complete tear of left rotator cuff 05/14/2020 Overview (05/14/2020): Added automatically from request for surgery [id number] Immunizations Immunization Administration Dates Next Due Influenza, Unspecified 05/04/2020 Surgical History Surgery Date Site/Laterality Comments CYSTOSTOMY W/ BLADDER BIOPSY 08/15/2016 - 08/14/2017 COLONOSCOPY SHOULDER ARTHROSCOPY W/ ROTA TOR CUFF REPAIR 08/15/1999 - 08/14/2000 Bilateral NOSE SURGERY 08/15/2015 - 08/14/2016 cancer SHOULDER ARTHROPLASTY 06/12/2020 Left Medical History Medical History Date Comments GERD (gastroesophageal reflux disease) Family History Medical History Relation Name Comments Anesthesia problems Neg Hx Social History Tobacco Use Types Packs/Day Years Used Date Smoking Tobacco: Former Cigarettes Q uit: 1993 Smokeless Tobacco: Never Alcohol Use Standard Drinks/Week Comments Yes 10 (1 standard drink = 0.6 oz pu re alcohol) Personal Safety Answer Date Recorded Getting School Help Needed Not on file 09/09 Sex and Gender Information Value Date Recorded Sex Assigned at Not on file Legal Sex Male 7:03 PM MANAGER INTEGRATED Gender Identity Not on file Sexual Orientation Not on file Obstetrics History Last Filed Vital Signs Vital Sign Reading Time Taken Comments Blood Pressure 150/78 09/29/2020 11:30 AM MANAGER INTEGRATED Pulse 88 09/29/2020 11:40 AM MANAGER INTEGRATED Temperature 36.5 C (97.7 F) 09/29/2020 11:35 AM MANAGER INTEGRATED Respiratory Rate 21 09/29/2020 11:40 AM MANAGER INTEGRATED Oxygen Saturation 96% 09/29/2020 11:40 AM MANAGER INTEGRATED Inhaled Oxygen Concentration - - Weight 95.3 kg (210 lb) 11/18/2020 10:21 AM CDT Height 177.8 cm (5' 10 ) 11/18/2020 10:21 AM CDT Body Mass Index 30.13 11/18/2020 10:21 AM CDT Plan of Treatment Health Maintenance Due Date Last Done Comments Depression Screening 1943 Fall Risk Assessment 1945 Hepatitis B Screening 1961 Zoster Vaccine (1 of 2) 1993 Well Visit 65+ 2008 Covid-19 Vaccine (3 - 2023-2 5 season) 2024 10/10/2020, 09/12/2020 Influenza Vaccine (#1) 2024 , 04/23/2020, 05/17/2019, Additional history exists DTaP/Tdap/Td Vaccine (2 - Td or Tdap) 03/26/2027 03/26/2017 Pneumococcal vaccine 65+ Completed 03/26/2017, 08/15 Medical Devices Implanted Type Area Web Content Specialist Device Identifier Shelf Expiration Date Model / Serial / Lot [employer] [id number] 25mm Reverse Shoulder Baseplate Glenoid Trabecular Metal - [id number] Implanted:Qty: 1 on 06/12/2020 by Billy Jones MD at [facility] Left: Shoulder [employer] [id number] 02/11/2030 [id number] / / [id number] [employer] [id number] 40mm Reverse Shoulder Sphere Glenoid Trabecular Metal - [id number] Implanted:Qty: 1 on 06/12/2020 by Billy Jones MD at [facility] Left: Shoulder [employer] [id number] 03/14/2030 [id number] / / [id number] [employer] [id number] Ncb Anatomical Shoulder 4.5mm 42mm Inverse Reverse Lock Self Tap - [id number] Implanted:Qty: 1 on 06/12/2020 by Billy Jones MD at [facility] Left: Shoulder [employer] [id number] 10/12/2024 [id number] / / [id number] [employer] [id number] Ncb Anatomical Shoulder 4.5mm 48mm Inverse Reverse Lock Self Tap - [id number] Implanted:Qty: 1 on 06/12/2020 by Billy Jones MD at [facility] Left: Shoulder [employer] [id number] 04/14/2024 [id number] / / [id number] [employer] [id number] 14mm 130mm Shoulder Stem Humeral Trabecular Metal Tivanium - [id number] Implanted:Qty: 1 on 06/12/2020 by Billy Jones MD at [facility] Left: Shoulder [employer] [id number] 04/02/2030 [id number] / / [id number] [employer] [id number] 40mm H+0mm Reverse Humerus 7d Standard Liner Shoulder Trabecular - [id number] Implanted:Qty: 1 on 06/12/2020 by Billy Jones MD at [facility] Left: Shoulder [employer] [id number] 10/12/2025 [id number] / / [id number] Insurance [facility] MEDICARE [facility] MEDICARE [facility] MEDICARE ADVANTAGE Advance Directives For more information, please contact: [phone] * Full Code (Latest Code Status on File) Date Activated Date Inactivated Comments 06/12/2020 12:16 PM 06/13/2020 4:40 PM Care Teams Dehydrogenation Supervisor Relationship Specialty Start Date End Date Henry Ho DO PCP - General Internal Medicine 08/19/20
--- OUTSIDE RECORDS SUMMARY | 2024-11-16 08:18 | XMS_ITS | Clinical Summary ---
Author Organization [facility] Address [address] [place] [address] Care Team Providers Care Horse Exerciser Name Role Phone Unavailable Primary Care Provider Unavailabl e Source Comments PLEASE NOTE, if this patient is a minor, it may be UNLAWFUL to discuss sensitive information that is contained in these records (such as FAMILY PLANNING, MENTAL HEALTH or SUBSTANCE ABUSE) with the minor patient's parent or other person without the patient's specific authorization.[facility] Active Problems Problem Noted Date Diagnosed Date Segmental and somatic dysfunction of cervical re gion 08/17/2021 Thoracic segment dysfunction 08/17/2021 Cervicalgia 08/17/2021 Myalgia of auxiliary muscles, head and neck 10/2021 Myalgia, other site 08/17/2021 Other cervical disc degenera tion, mid-cervical region, unspecified level 08/17/2021 Other kyphosis, cervical region 08/17/2021 Cervical spondylosis without myelopathy 08/17/19 Social History Tobacco Use Types Packs/Day Years Used Date Smoking Tobacco: Never Assessed Social Connections Answer Date Recorded Connectedness 0 04/26/2024 Financial Resource Strain Answer Date R ecorded Financial Resource Strain 0 2021 Stress Answer Date Recorded Stress 0 08/17/2021 Physical Activity Answer Date Recorded Physical Activity 0 08/17/2021 Food Insecurity Answer Date Recorded Food 0 05/10/2024 Transportation Needs Answer Date Record ed Transportation 0 08/17/2021 Housing Stability Answer Date Recorded Housing 0 08/17/2021 Safety and Environment Answer Date Marco Antonio rded Safety 0 08/17/2021 Utilities Answer Date Recorded Utilities 0 08/17/2021 Employment Answer Date Recorded Stress 0 04/26/2024 Sex and Gender Information Value Date Recorded Sex Assigned at Not on file Legal Sex Male 8:45 AM PST Gender Identity Not on file Sexual Orientation Not on file Last Filed Vital Signs Vital Sign Reading Time Taken Comments Blood Pressure 140/90 08/17/2021 2:44 PM CASER Pulse 76 08/17/2021 2:44 PM CASER Temperature - - Respiratory Rate 18 08/17/2021 2:44 PM CASER Oxygen Saturation - - Inhaled Oxygen Concentration - - Weight 100.7 kg (222 lb) 08/17/2021 2:44 PM CASER Height 179.1 cm (5' 10.5 ) 08/17/2021 2:44 PM CS T Body Mass Index 31.4 08/17/2021 2:44 PM CASER Plan of Treatment Health Maintenance Due Date Last Done Comments Tobacco Screening 1945 Advanced Care Planning 1945 Medicare Annual Wellness Visit 1961 Imm-DTaP/Tdap/Td (1 - Tdap) 1962 Imm-Pneumococcal 65+ (1 of 1 - PCV) 1993 Imm-Zoster, Recombinant (1 of 2) 1993 Falls Prevention 2008 Hypertension Screening (#1) 08/17/2022 [id number] (3 - 2023- season) 2024 021, 09/12/2020 Imm-Influenza (#1) 2024 Alcohol and Drug Screen 08/15/2024 Depression Annual Screen 08/15/2024 Insurance [employer] MEDICARE
--- OUTSIDE RECORDS SUMMARY | 2024-11-16 08:18 | XMS_ITS | Referral Summary ---
Author Organization [facility] Address [address] [place] [id number] Care Team Providers Care Auto Hauler Name Role Phone Henry Ho DO Primary Care Provider [phone] Allergies No known active allergies Medications atorvastatin [...] (09/19/2020): Added automatically from request for surgery [id number] HLD (hyperlipidemia) 06/10/2020 Risk factors for obstructive sleep apnea 020 Complete tear of left rotator cuff 05/14/2020 Overview (05/14/2020): Added automatically from request for surgery [id number] Immunizations Immunization Administration Dates Next Due Influenza, Unspecified 05/04/2020 Social History Tobacco Use Types Packs/Day Years [...] on file Legal Sex Male 7:03 PM CONSTRUCTION MGR Gender Identity Not on file Sexual Orientation Not on file Last Filed Vital Signs Vital Sign Reading Time Taken Comments Blood Pressure 150/78 09/29/2020 11:30 AM CONSTRUCTION MGR Pulse 88 09/29/2020 11:40 AM CONSTRUCTION MGR Temperature 36.5 C (97.7 F) 09/29/2020 11:35 AM CONSTRUCTION MGR Respiratory Rate 21 09/29/2020 11:40 AM CONSTRUCTION MGR Oxygen Saturation 96% 09/29/2020 11:40 AM CONSTRUCTION MGR Inhaled Oxygen Concentration - - Weight 95.3 kg (210 lb) 11/18/2020 10:21 AM CDT Height 177.8 cm (5' 10 ) 11/18/2020 10:21 AM CDT Body Mass Index 30.13 11/18/2020 10:21 AM CDT Plan of Treatment Not on file Medical Devices Implanted Type Area Degreasing Wheel Operator Device Identifier Shelf Expiration Date Model / Serial / Lot [employer] [id number] 25mm Reverse Shoulder Baseplate Glenoid Trabecular Metal - [id number] Implanted:Qty: 1 on 06/12/2020 by Billy Jones MD at [facility] Left: Shoulder [employer] [id number] 02/11/2030 [id number] / / [id number] [employer] [id number] 40mm Reverse Shoulder Sphere Glenoid Trabecular Metal - [id number] Implanted:Qty: 1 on 06/12/2020 by Billy Jones MD at [facility] Left: Shoulder [employer] [id number] 03/14/2030 [id number] / / [id number] [employer] 23.042 Ncb Anatomical Shoulder 4.5mm 42mm Inverse Reverse Lock Self Tap - [id number] Implanted:Qty: 1 on 06/12/2020 by Billy Jones MD at [facility] Left: Shoulder [employer] [id number] 10/12/2024.042 / / [id number] [employer] .048 Ncb Anatomical Shoulder 4.5mm 48mm Inverse Reverse Lock Self Tap - [id number] Implanted:Qty: 1 on 06/12/2020 by Billy Jones MD at [facility] Left: Shoulder [employer] [id number] 04/14/2024.32005.048 / / [id number] [employer] [id number] 14mm 130mm Shoulder Stem Humeral Trabecular Metal Tivanium - [id number] Implanted:Qty: 1 on 06/12/2020 by Billy Jones MD at [facility] Left: Shoulder [employer] [id number] 04/02/2030 [id number] / / [id number] [employer] [id number] 40mm H+0mm Reverse Humerus 7d Standard Liner Shoulder Trabecular - [id number] Implanted:Qty: 1 on 06/12/2020 by Billy Jones MD at [facility] Left: Shoulder [employer] [id number] 10/12/2025 [id number] / / [id number] Insurance [facility] MEDICARE [facility] MEDICARE Address: [facility] [id number] [place] [address] [facility]LY [facility] MEDICARE [facility] MEDICARE ADVANTAGE Advance Directives For more information, please contact: [phone] * Full Code (Latest Code Status on File) Date Activated Date Inactivated Comments 06/12/2020 12:16 PM 06/13/2020 4:40 PM Care Teams Auto Hauler Relationship Specialty Start Date End Date Henry Ho DO PCP - General Internal Medicine 08/19/20
== END 2024-11-16 08:12 | disposition home or self-care (01) ==
PROVIDERS: PCP Nurse Practitioner; Visit Provider Urology
DX: C67.9 Malignant neoplasm of bladder, unspecified (principal); N40.0 Benign prostatic hyperplasia without lower urinary tract symptoms; K40.20 Bilateral inguinal hernia, without obstruction or gangrene, not specified as recurrent
CPT/HCPCS: 74178; Q9967

== ENCOUNTER 2025-01-16 07:32 | Outpatient (CLI) | payer MEDICARE, SELFPAY ==
--- OUTSIDE RECORDS SUMMARY | 2025-01-16 07:40 | XMS_ITS | Clinical Summary ---
Author Organization [facility] Address [address] [place] [id number] Care Team Providers Care Barratte Operator Name Role Phone Henry Ho DO Primary Care Provider [phone] Allergies No known active allergies Medications atorvastatin [...] (09/19/2020): Added automatically from request for surgery [id number] HLD (hyperlipidemia) 06/10/2020 Risk factors for obstructive sleep apnea 020 Complete tear of left rotator cuff 05/14/2020 Overview (05/14/2020): Added automatically from request for surgery [id number] Immunizations Immunization Administration Dates Next Due Influenza, [...] on file Legal Sex Male 7:03 PM REAL ESTATE PROFESSIONAL Gender Identity Not on file Sexual Orientation Not on file Obstetrics History Last Filed Vital Signs Vital Sign Reading Time Taken Comments Blood Pressure 150/78 09/29/2020 11:30 AM REAL ESTATE PROFESSIONAL Pulse 88 09/29/2020 11:40 AM REAL ESTATE PROFESSIONAL Temperature 36.5 C (97.7 F) 09/29/2020 11:35 AM REAL ESTATE PROFESSIONAL Respiratory Rate 21 09/29/2020 11:40 AM REAL ESTATE PROFESSIONAL Oxygen Saturation 96% 09/29/2020 11:40 AM REAL ESTATE PROFESSIONAL Inhaled Oxygen Concentration - - Weight 95.3 kg (210 lb) 11/18/2020 10:21 AM CDT Height 177.8 cm (5' 10) 11/18/2020 10:21 AM CDT Body Mass Index 30.13 11/18/2020 10:21 AM CDT Plan of Treatment Health Maintenance Due Date Last Done Comments Depression Screening 1943 Hepatitis B Screening 1961 Zoster Vaccine (1 of 2) 1993 Well Visit 65+ 2008 Fall Risk Assessment 09/29/2021 09/29/2020 Covid-19 Vaccine (3 - 2023-2 5 season) 2024 10/10/2020, 09/12/2020 Influenza Vaccine (Season Ended) 2025 05/04/2020, 04/23/2020, 05/17/2019, Additional history exists DTaP/Tdap/Td Vaccine (2 - Td or Tdap) 03/26/2027 03/26/2017 Pneumococcal vaccine 65+ Completed 03/26/2017, 08/15 Medical Devices Implanted Type Area Bag Inspector Device Identifier Shelf Expiration Date Model / Serial / Lot [employer] [id number] 25mm Reverse Shoulder Baseplate Glenoid Trabecular Metal - [id number] Implanted:Qty: 1 on 06/12/2020 by Billy Jones MD at [facility] Left: Shoulder [employer] [id number] 02/11/2030 [id number] / / [id number] [employer] [id number] 40mm Reverse Shoulder Sphere Glenoid Trabecular Metal - [id number] Implanted:Qty: 1 on 06/12/2020 by Billy Jones MD at [facility] Left: Shoulder [employer] [id number] 03/14/2030 [id number] / / [id number] [employer] 01.89195.042 Ncb Anatomical Shoulder 4.5mm 42mm Inverse Reverse Lock Self Tap - [id number] Implanted:Qty: 1 on 06/12/2020 by Billy Jones MD at [facility] Left: Shoulder [employer] [id number] 10/12/2024 01.17496.042 / / [id number] [employer] 01.34246.048 Ncb Anatomical Shoulder 4.5mm 48mm Inverse Reverse Lock Self Tap - [id number] Implanted:Qty: 1 on 06/12/2020 by Billy Jones MD at [facility] Left: Shoulder [employer] [id number] 04/14/2024 01.10717.048 / / [id number] [employer] [id number] 14mm 130mm Shoulder Stem Humeral Trabecular Metal Tivanium - [id number] Implanted:Qty: 1 on 06/12/2020 by Billy Jones MD at [facility] Left: Shoulder [employer] [id number] 04/02/2030 [id number] / / [id number] [employer] [id number] 40mm H+0mm Reverse Humerus 7d Standard Liner Shoulder Trabecular - [id number] Implanted:Qty: 1 on 06/12/2020 by Billy Jones MD at [facility] Left: Shoulder [employer] [id number] 10/12/2025 [id number] / / [id number] Insurance [employer] MEDICARE [facility] MEDICARE [facility] MEDICARE ADVANTAGE Advance Directives For more information, please contact: [phone] * Full Code (Latest Code Status on File) Date Activated Date Inactivated Comments 06/12/2020 12:16 PM 06/13/2020 4:40 PM Care Teams Barratte Operator Relationship Specialty Start Date End Date Henry Ho DO PCP - General Internal Medicine 08/19/20
--- OUTSIDE RECORDS SUMMARY | 2025-01-16 07:40 | XMS_ITS | Referral Summary ---
Author Organization [facility] Address [address] [place] [address] Care Team Providers Care Cylinder Devalver Name Role Phone Henry Ho DO Primary Care Provider [phone] Allergies No known active allergies Medications atorvastatin [...] (09/19/2020): Added automatically from request for surgery [id number] HLD (hyperlipidemia) 06/10/2020 Risk factors for obstructive sleep apnea 020 Complete tear of left rotator cuff 05/14/2020 Overview (05/14/2020): Added automatically from request for surgery [id number] Immunizations Immunization Administration Dates Next Due Influenza, [...] on file Legal Sex Male 7:03 PM 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 [employer] Gender Identity Not on file Sexual Orientation Not on file Last Filed Vital Signs Vital Sign Reading Time Taken Comments Blood Pressure 150/78 09/29/2020 11:30 AM 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 [employer] Pulse 88 09/29/2020 11:40 AM 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 [employer] Temperature 36.5 C (97.7 F) 09/29/2020 11:35 AM 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 [employer] Respiratory Rate 21 09/29/2020 11:40 AM 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 [employer] Oxygen Saturation 96% 09/29/2020 11:40 AM 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 [employer] Inhaled Oxygen Concentration - - Weight 95.3 kg (210 lb) 11/18/2020 10:21 AM CDT Height 177.8 cm (5' 10) 11/18/2020 10:21 AM CDT Body Mass Index 30.13 11/18/2020 10:21 AM CDT Plan of Treatment Not on file Medical Devices Implanted Type Area License Examiner Device Identifier Shelf Expiration Date Model / Serial / Lot [employer] [id number] 25mm Reverse Shoulder Baseplate Glenoid Trabecular Metal - [id number] Implanted:Qty: 1 on 06/12/2020 by Billy Jones MD at [facility] Left: Shoulder [employer] [id number] 02/11/2030 [id number] / / [id number] [employer] [id number] 40mm Reverse Shoulder Sphere Glenoid Trabecular Metal - [id number] Implanted:Qty: 1 on 06/12/2020 by Billy Jones MD at [facility] Left: Shoulder [employer] [id number] 03/14/2030 [id number] / / [id number] [employer] 23.042 Ncb Anatomical Shoulder 4.5mm 42mm Inverse Reverse Lock Self Tap - [id number] Implanted:Qty: 1 on 06/12/2020 by Billy Jones MD at [facility] Left: Shoulder [employer] [id number] 10/12/2024.042 / / [id number] [employer] .048 Ncb Anatomical Shoulder 4.5mm 48mm Inverse Reverse Lock Self Tap - [id number] Implanted:Qty: 1 on 06/12/2020 by Billy Jones MD at [facility] Left: Shoulder [employer] [id number] 04/14/2024.63433.048 / / [id number] [employer] [id number] 14mm 130mm Shoulder Stem Humeral Trabecular Metal Tivanium - [id number] Implanted:Qty: 1 on 06/12/2020 by Billy Jones MD at [facility] Left: Shoulder [employer] [id number] 04/02/2030 [id number] / / [id number] [employer] [id number] 40mm H+0mm Reverse Humerus 7d Standard Liner Shoulder Trabecular - [id number] Implanted:Qty: 1 on 06/12/2020 by Billy Jones MD at [facility] Left: Shoulder [employer] [id number] 10/12/2025 [id number] / / [id number] Insurance [facility] MEDICARE [facility] MEDICARE Address: [facility] [address] [place] [address] [facility] MEDICARE [facility] MEDICARE ADVANTAGE Advance Directives For more information, please contact: [phone] * Full Code (Latest Code Status on File) Date Activated Date Inactivated Comments 06/12/2020 12:16 PM 06/13/2020 4:40 PM Care Teams Cylinder Devalver Relationship Specialty Start Date End Date Henry Ho DO PCP - General Internal Medicine 08/19/20
--- NOTE | 2025-01-16 07:52 | ECG_ITS ---
Test Date: 2025-01-16 08:01:25 Measurements Intervals [place] Rate: 64 P: -40 [place]: 154 QRS: 65 QRSD: 149 T: 24 QT: 465 QTc: 482 Interpretive Statements SINUS RHYTHM RIGHT BUNDLE BRANCH BLOCK BASELINE ARTIFACT- I, II, III, AVR, AVL, AVF, V1-V6 ABNORMAL ECG No previous ECG available for comparison Electronically Signed On 01-16-2025 08:13:18 CDT by Martin Toro D.O.
== END 2025-01-16 07:33 | disposition home or self-care (01) ==
LOC: ANHSURGERY 07:36
PROVIDERS: PCP Nurse Practitioner; Visit Provider Urology
DX: R94.31 Abnormal electrocardiogram [ECG] [EKG] (principal); E78.2 Mixed hyperlipidemia
CPT/HCPCS: 93005

== ENCOUNTER 2025-01-24 03:31 | Day surgery (SDC) | payer MEDICARE, SELFPAY ==
--- NOTE | 2025-01-01 06:37 | P.HP_ITS ---
History of Present Illness History of Present Illness Consent: Risks, benefits, and alternatives have been discussed and questions answered. Patient agrees to proceed with procedure. Chief complaint: Bladder Ca Narrative: Eriberto Rivera is a 79 year old male: 01/2018: ?TURBT: T1, high-grade ?Induction BCG 10/2018: ?Re-resection: negative 01/2019: ?Cysto.: neg ?/ ?Cytology: neg. ?Opted against maintenance BCG 04/2019: ?Cysto.: neg. / ?Cytology: neg 07/2019: ?Cysto.: neg. / ?Cytology: neg 10/2019: ?CT-abd/pelvis w/wo contrast: normal 02/2020: ?Cysto.: neg 08/2020: ?Cysto.: neg 08/2021: ?Cysto.: neg 06/2023: ?CT-abd/pelvis w/wo contrast: ?possible recurrent bladder mass left ant. bladder wall. ?no adenopathy or evidence of metastatic dz. 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 Treat like HG, T-1: Induction and maintenance BCG ?Regular surveillance cysto. as with HR UC ?Frequent CT scans looking for submucosal growth/recurrnec ?2. Treat like MIBC: ?a. Neoadjuvant chemo / radical cystectomy ?b. Chemoradiation ?c. Probably candidate for neoadjuvant chemo / partial cystectomy Surveillance Plan: Induction and maintenance BCG [id number] ?Cysto. q3-months x2-years / q6-months x2-years / q12- months ?CT-abd/pelvis w/wo contrast annually 02/07/24: ?Induction BCG completed (6 treatments) 03/12/24: ?Cysto.: normal 07/10/24 - 07/24/24: mBCG #3-month 10/15, ?tolerated instillations well, denies sx. on Tamsulosin 0.4mg BID. 08/2024: ?Cysto: normal ?Cytology: normal 11/2024: ?CT-abd/pelvis w/wo contrast: normal ?Cysto.: Challenging (cloudy urine): probable recurrence in dome) Review of Systems Cardiovascular: Cardiovascular: Denies chest pain, Denies lightheadedness, Denies palpitations and Denies dyspnea Respiratory: Respiratory: Denies dyspnea Gastrointestinal: Gastrointestinal: Denies diarrhea, Denies nausea and Denies vomiting Genitourinary: Genitourinary: Denies hematuria and Denies dysuria Endocrine: Endocrine: Denies palpitations PMFSH Past Medical History Medical History Actinic keratoses High cholesterol History of basal cell carcinoma (BCC) History of bladder cancer Skin cancer Surgical History Surgical History History of arthroscopy of right shoulder arthroscopic debridement October 2019 History of rotator cuff surgery Bilateral - Dr Rene Social History Social History (Updated 11/09/24 @ 11:21 by Lonnie Luque APRN) Smoking packs per day: 2 Smoking cigarettes per day: 40.0 Years smoked: 43 Smoking pack-years: 86.00 Smoking status: Former smoker Tobacco type: cigarettes Second hand tobacco smoke exposure: No Smoking end date: 02/12/90 Additional smoking assessment comments: Smoked for 30 years Alcohol intake: current Alcohol use details: Occasional Substance use: never Substance use type: does not use Lack of Transportation: No Lack of Food: Never True Current Housing: I Have Housing Concerned About Future Housing: No Difficulty Paying Gas/Electric Bills: No Difficulty Paying for Meds: No Currently Unemployed: No Education: High School Diploma/GED Difficulty w/ Childcare or Family Care: No Living arrangements: alone Occupation/Education: retired Gender identity (if verbalized by the patient): Male Spiritual care concerns: No Meds Home Medications and Allergies Home Medications ?Medication ?Instructions ?Recorded ?Confirmed ?Type aspirin 81 mg tablet,delayed 81 mg PO DAILY 10/10/19 11/09/24 History release (Adult Low Dose Aspirin) cholecalciferol (vitamin D3) 125 125 mcg PO DAILY 09/23/21 11/09/24 History mcg (5,000 unit) tablet esomeprazole magnesium 20 mg 20 mg PO DAILY 05/01/24 11/09/24 History capsule,delayed release (Nexium 24HR) finasteride 5 mg tablet 5 mg PO DAILY 05/01/24 11/09/24 History niacin 500 mg tablet 500 mg PO DAILY 05/01/24 11/09/24 History tamsulosin 0.4 mg capsule 0.4 mg PO DAILY 05/01/24 11/09/24 History atorvastatin 80 mg tablet See Rx Instructions .Route 11/09/24 11/09/24 Rx .COMPLEX #90 tabs ezetimibe 10 mg tablet 5 mg (1/2 x 10 mg) PO DAILY #90 11/09/24 11/09/24 Rx tabs Allergies Allergy/AdvReac Type Severity Reaction Status Date / Time No Known Allergies Allergy Verified 11/09/24 10:44 Exam Const: General: no acute distress Resp: Effort & Inspection: normal respiratory effort GI: Inspection: non-distended GI Palp: No abdominal tenderness and No Guarding due to palpation present (GI) Auscultation: normal bowel sounds Assessment and Plan Assessment and plan (1) Cancer of dome of urinary bladder: Code(s): C67.1 - Malignant neoplasm of dome of bladder Status: Acute Assessment and Plan: * TURBT / Gemcitabine instillation
--- NOTE | 2025-01-11 08:32 | PC.NURSE ---
Report to the Outpatient Waiting Room, entrance under the green pavilion located off [facility], at time __8:15 AM on date __01/24/25 . Planned Procedure Time: __10:15 AM .? Time changes happen often and if your time is changed the preop area will call you the afternoon before. - You and your visitor will be asked to self-screen and do not enter if you have any COVID symptoms. Please call surgeon if you need to reschedule. - A mask is optional within the hospital at this time. Patients may have clear liquids (water, carbonated beverages, clear teas, apple juice) until 3 hours prior to surgery (7:15 AM) with a maximum of 20 ounces. - No food from midnight until time of surgery and no smoking, or chewing tobacco (or any form of nicotine). No chewing gum, candy or mints. Take only the following medications with a SIP of water on the morning of surgery: NONE DO NOT STOP ANY OF YOUR OTHER PRESCRIPTION MEDICATIONS PRIOR TO SURGERY EXCEPT THE FOLLOWING Hold all vitamins and supplements for 3 days per anesthesiologist.LAST DOSE 01/20/25 Medications to discontinue per physician __ASPIRIN PER DR VIDALES Please no make-up, nail english, hairspray, perfume, deodorant, or body powder the day of surgery.? No jewelry (including any body piercings) or valuables the day of surgery, leave them at home.? Please take a shower or bath the night before, or the morning of, surgery with an antibacterial soap.? Wear comfortable, loose fitting clothing.? Children are encouraged to wear pajamas. - Jewelry must be removed prior to entering the operating room.? Rings and piercings that are not removed may be cut off. - The hospital will not accept responsibility for valuables.? - Please leave all valuables, including medications, at home the day of surgery. If you are going home after surgery, a licensed home delivery driver must drive you home.? - NO public transportation without another adult if you receive anesthesia. - We recommend that an adult stay with you for 24 hours following discharge. - We also recommend that you do not drive, make important decision, drink alcoholic beverages, or take any drugs that were not prescribed by your health care provider for at least 24 hours after your discharge time. For Pediatric surgeries, we recommend two adults accompany the child home. Follow any additional instructions given to you from your surgeon. Telephone instructions given to __PATIENT and asked if any additional questions and then verbalized understanding. Patient advised to call surgeon office or pre surgery nurse liaison [phone] if any additional questions.
[2025-01-11 08:47] VITALS: BMI 29.4
--- NOTE | 2025-01-22 07:47 | P.HP_ITS ---
History of Present Illness History of Present Illness Consent: Risks, benefits, and alternatives have been discussed and questions answered. Patient agrees to proceed with procedure. Chief complaint: Bladder Ca Narrative: Eriberto Rivera is a 79 year old male with history of recurrent bladder tumors. 01/2018: ?TURBT: T1, high-grade ?Induction BCG 10/2018: ?Re-resection: negative 01/2019: ?Cysto.: neg ?/ ?Cytology: neg. ?Opted against maintenance BCG 04/2019: ?Cysto.: neg. / ?Cytology: neg 07/2019: ?Cysto.: neg. / ?Cytology: neg 10/2019: ?CT-abd/pelvis w/wo contrast: normal 02/2020: ?Cysto.: neg 08/2020: ?Cysto.: neg 08/2021: ?Cysto.: neg 06/2023: ?CT-abd/pelvis w/wo contrast: ?possible recurrent bladder mass left ant. bladder wall. ?no adenopathy or evidence of metastatic dz. 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 Treat like HG, T-1: Induction and maintenance BCG ?Regular surveillance cysto. as with HR UC ?Frequent CT scans looking for submucosal growth/recurrnec ?2. Treat like MIBC: ?a. Neoadjuvant chemo / radical cystectomy ?b. Chemoradiation ?c. Probably candidate for neoadjuvant chemo / partial cystectomy Surveillance Plan: Induction and maintenance BCG [id number] ?Cysto. q3-months x2-years / q6-months x2-years / q12- months ?CT-abd/pelvis w/wo contrast annually 02/07/24: ?Induction BCG completed (6 treatments) 03/12/24: ?Cysto.: normal 07/10/24 - 07/24/24: mBCG #3-month 3, ?tolerated instillations well, denies sx. on Tamsulosin 0.4mg BID. 08/2024: ?Cysto: normal ?Cytology: normal 11/2024: ?CT-abd/pelvis w/wo contrast: normal ?Cysto.: cloudy urine but probable recurrence in dome. Review of Systems Review of Systems: All systems reviewed & are unremarkable except as noted in HPI and below PMFSH Past Medical History Medical History Actinic keratoses High cholesterol History of basal cell carcinoma (BCC) History of bladder cancer Skin cancer Surgical History Surgical History History of arthroscopy of right shoulder arthroscopic debridement October 2019 History of rotator cuff surgery Bilateral - Dr Rene Social History Social History (Updated 11/09/24 @ 11:21 by Lonnie Luque APRN) Smoking packs per day: 2 Smoking cigarettes per day: 40.0 Years smoked: 20 Smoking pack-years: 40.00 Smoking status: Former smoker Tobacco type: cigarettes Second hand tobacco smoke exposure: No Smoking end date: 08/15/91 Additional smoking assessment comments: Smoked for 30 years Alcohol intake: current Alcohol use details: Occasional Substance use: never Substance use type: does not use Lack of Transportation: No Lack of Food: Never True Current Housing: I Have Housing Concerned About Future Housing: No Difficulty Paying Gas/Electric Bills: No Difficulty Paying for Meds: No Currently Unemployed: No Education: High School Diploma/GED Difficulty w/ Childcare or Family Care: No Living arrangements: alone Occupation/Education: retired Gender identity (if verbalized by the patient): Male Spiritual care concerns: No Meds Home Medications and Allergies Home Medications ?Medication ?Instructions ?Recorded ?Confirmed ?Type aspirin 81 mg tablet,delayed 81 mg PO DAILY 10/10/19 01/11/25 History release (Adult Low Dose Aspirin) cholecalciferol (vitamin D3) 125 125 mcg PO DAILY 09/23/21 01/11/25 History mcg (5,000 unit) tablet esomeprazole magnesium 20 mg 20 mg PO DAILY 05/01/24 01/11/25 History capsule,delayed release (Nexium 24HR) finasteride 5 mg tablet 5 mg PO DAILY 05/01/24 01/11/25 History niacin 500 mg tablet 500 mg PO DAILY 05/01/24 01/11/25 History tamsulosin 0.4 mg capsule 0.4 mg PO DAILY 05/01/24 01/11/25 History atorvastatin 80 mg tablet See Rx Instructions .Route 11/09/24 01/11/25 Rx .COMPLEX #90 tabs ezetimibe 10 mg tablet 5 mg (1/2 x 10 mg) PO DAILY #90 11/09/24 01/11/25 Rx tabs Allergies Allergy/AdvReac Type Severity Reaction Status Date / Time No Known Allergies Allergy Verified 01/11/25 08:33 Exam Const: General: no acute distress Resp: Effort & Inspection: normal respiratory effort GI: Inspection: non-distended GI Palp: No abdominal tenderness and No Guarding due to palpation present (GI) Auscultation: normal bowel sounds Assessment and Plan Assessment and plan (1) Cancer of dome of urinary bladder: Code(s): C67.1 - Malignant neoplasm of dome of bladder Status: Acute Assessment and Plan: Recent cysto. challenging d/t cloudy urine but suggest recurrence in dome. Presents for TURBT with Gemcitabine instillation
[2025-01-24] VITALS (11 sets, daily range): BP systolic 109–149; BP diastolic 49–76; PULSE 58–77; RESP 11–18; TEMP 36.2–37; O2SAT 94–100
--- OUTSIDE RECORDS SUMMARY | 2025-01-24 03:33 | XMS_ITS | Clinical Summary ---
Author Organization [facility] Address [address] [place] [id number] Care Team Providers Care Landscape Designer Name Role Phone Henry Ho DO Primary Care Provider [phone] Allergies No known active allergies Medications atorvastatin [...] (09/19/2020): Added automatically from request for surgery [id number] HLD (hyperlipidemia) 06/10/2020 Risk factors for obstructive sleep apnea 020 Complete tear of left rotator cuff 05/14/2020 Overview (05/14/2020): Added automatically from request for surgery [id number] Immunizations Immunization Administration Dates Next Due Influenza, [...] on file Legal 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 Gender Identity Not on file Sexual Orientation Not on file Obstetrics History Last Filed Vital Signs Vital Sign Reading Time Taken Comments Blood Pressure 150/78 09/29/2020 11:30 AM DOOR INSTALLER Pulse 88 09/29/2020 11:40 AM DOOR INSTALLER Temperature 36.5 C (97.7 F) 09/29/2020 11:35 AM DOOR INSTALLER Respiratory Rate 21 09/29/2020 11:40 AM DOOR INSTALLER Oxygen Saturation 96% 09/29/2020 11:40 AM DOOR INSTALLER Inhaled Oxygen Concentration - - Weight 95.3 [...] 03/26/2017, 08/15 Medical Devices Implanted Type Area Assembler Truck Trailer Device Identifier Shelf Expiration Date Model / Serial / Lot [employer] [id number] 25mm Reverse Shoulder Baseplate Glenoid Trabecular Metal - [id number] Implanted:Qty: 1 on 06/12/2020 by Billy Jones MD at [facility] Left: Shoulder [employer] [id number] 02/11/2030 [id number] / / [id number] [employer] [id number] 40mm Reverse Shoulder Sphere Glenoid Trabecular Metal - [id number] Implanted:Qty: 1 on 06/12/2020 by Billy Jones MD at [facility] Left: Shoulder [employer] [id number] 03/14/2030 [id number] / / [id number] [employer] 01.16355.042 Ncb Anatomical Shoulder 4.5mm 42mm Inverse Reverse Lock Self Tap - [id number] Implanted:Qty: 1 on 06/12/2020 by Billy Jnoes MD at [facility] Left: Shoulder [employer] [id number] 10/12/2024 01.67630.042 / / [id number] [employer] 01.01756.048 Ncb Anatomical Shoulder 4.5mm 48mm Inverse Reverse Lock Self Tap - [id number] Implanted:Qty: 1 on 06/12/2020 by Billy Jones MD at [facility] Left: Shoulder [employer] [id number] 04/14/2024 01.63357.048 / / [id number] [employer] [id number] 14mm 130mm Shoulder Stem Humeral Trabecular Metal Tivanium - [id number] Implanted:Qty: 1 on 06/12/2020 by Billy Jones MD at [facility] Left: Shoulder [employer] [id number] 04/02/2030 [id number] / / [id number] [employer] [id number] 40mm H+0mm Reverse Humerus 7d Standard Liner Shoulder Trabecular - [id number] Implanted:Qty: 1 on 06/12/2020 by Billy Jones MD at [facility] Left: Shoulder [employer] [id number] 10/12/2025 [id number] / / [id number] Insurance [employer] MEDICARE AEST. [facility] MEDICARE [facility] MEDICARE ADVANTAGE [facility] Address: [facility] [address] [place] [address] Advance Directives For more information, please contact: [phone] * Full Code (Latest Code Status on File) Date Activated Date Inactivated Comments 06/12/2020 12:16 PM 06/13/2020 4:40 PM Care Teams Landscape Designer Relationship Specialty Start Date End Date Henry Ho DO PCP - General Internal Medicine 08/19/20
--- OUTSIDE RECORDS SUMMARY | 2025-01-24 03:33 | XMS_ITS | Clinical Summary ---
Author Organization [facility] Address [address] [place] [address] Care Team Providers Care Pharmacy Services Director Name Role Phone Unavailable Primary Care Provider [...] Comments Blood Pressure 140/90 08/17/2021 2:44 PM PICTURE FRAMER Pulse 76 08/17/2021 2:44 PM PICTURE FRAMER Temperature - - Respiratory Rate 18 08/17/2021 2:44 PM PICTURE FRAMER Oxygen Saturation - - Inhaled Oxygen Concentration - - Weight 100.7 kg (222 lb) 08/17/2021 2:44 PM PICTURE FRAMER Height 179.1 cm (5' 10.5) 08/17/2021 2:44 PM CS T Body Mass Index 31.4 08/17/2021 2:44 PM PICTURE FRAMER Plan of Treatment Health Maintenance Due Date Last Done Comments Tobacco Screening 1945 Advanced Care Planning 1945 Medicare Annual Wellness Visit 1961 Imm-DTaP/Tdap/Td (1 - Tdap) 1962 Imm-Pneumococcal 65+ (1 of 1 - PCV) 1993 Imm-Zoster, Recombinant (1 of 2) 1993 Falls Prevention 2008 Hypertension Screening (#1) 08/17/2022 Fuw-QTNED-03 ( season) 2024 021, 09/12/2020 Alcohol and Drug Screen 08/15/2024 Depression Annual Screen 08/15/2024 Imm-Influenza (Season Ended) 2025 Insurance [employer] MEDICARE
--- OUTSIDE RECORDS SUMMARY | 2025-01-24 03:33 | XMS_ITS | Referral Summary ---
Author Organization [facility] Address [address] [place] [id number] Care Team Providers Care Weather Reporter Name Role Phone Henry Ho DO Primary Care Provider [phone] Allergies No known active allergies Medications atorvastatin [...] (09/19/2020): Added automatically from request for surgery [id number] HLD (hyperlipidemia) 06/10/2020 Risk factors for obstructive sleep apnea 020 Complete tear of left rotator cuff 05/14/2020 Overview (05/14/2020): Added automatically from request for surgery [id number] Immunizations Immunization Administration Dates Next Due Influenza, [...] on file Legal 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 Gender Identity Not on file Sexual Orientation Not on file Last Filed Vital Signs Vital Sign Reading Time Taken Comments Blood Pressure 150/78 09/29/2020 11:30 AM EFFICIENCY MANAGER Pulse 88 09/29/2020 11:40 AM EFFICIENCY MANAGER Temperature 36.5 C (97.7 F) 09/29/2020 11:35 AM EFFICIENCY MANAGER Respiratory Rate 21 09/29/2020 11:40 AM EFFICIENCY MANAGER Oxygen Saturation 96% 09/29/2020 11:40 AM EFFICIENCY MANAGER Inhaled Oxygen Concentration - - Weight 95.3 kg (210 lb) 11/18/2020 10:21 AM CDT Height 177.8 cm (5' 10) 11/18/2020 10:21 AM CDT Body Mass Index 30.13 11/18/2020 10:21 AM CDT Plan of Treatment Not on file Medical Devices Implanted Type Area Floater Operator Device Identifier Shelf Expiration Date Model / Serial / Lot [employer] [id number] 25mm Reverse Shoulder Baseplate Glenoid Trabecular Metal - [id number] Implanted:Qty: 1 on 06/12/2020 by Billy Jones MD at [facility] Left: Shoulder [employer] [id number] 02/11/2030 [id number] / / [id number] [employer] [id number] 40mm Reverse Shoulder Sphere Glenoid Trabecular Metal - [id number] Implanted:Qty: 1 on 06/12/2020 by Billy Jones MD at [facility] Left: Shoulder [employer] [id number] 03/14/2030 [id number] / / [id number] [employer] 23.042 Ncb Anatomical Shoulder 4.5mm 42mm Inverse Reverse Lock Self Tap - [id number] Implanted:Qty: 1 on 06/12/2020 by Billy Jones MD at [facility] Left: Shoulder [employer] [id number] 10/12/2024.042 / / [id number] [employer] .048 Ncb Anatomical Shoulder 4.5mm 48mm Inverse Reverse Lock Self Tap - [id number] Implanted:Qty: 1 on 06/12/2020 by Billy Jones MD at [facility] Left: Shoulder [employer] [id number] 04/14/2024.12456.048 / / [id number] [employer] [id number] 14mm 130mm Shoulder Stem Humeral Trabecular Metal Tivanium - [id number] Implanted:Qty: 1 on 06/12/2020 by Billy Jones MD at [facility] Left: Shoulder [employer] [id number] 04/02/2030 [id number] / / [id number] [employer] [id number] 40mm H+0mm Reverse Humerus 7d Standard Liner Shoulder Trabecular - [id number] Implanted:Qty: 1 on 06/12/2020 by Billy Jones MD at [facility] Left: Shoulder [employer] [id number] 10/12/2025 [id number] / / [id number] Insurance [facility] MEDICARE [facility] MEDICARE [facility] MEDICARE ADVANTAGE Advance Directives For more information, please contact: [phone] * Full Code (Latest Code Status on File) Date Activated Date Inactivated Comments 06/12/2020 12:16 PM 06/13/2020 4:40 PM Care Teams Weather Reporter Relationship Specialty Start Date End Date Henry Ho DO PCP - General Internal Medicine 08/19/20
--- NOTE | 2025-01-24 06:55 | WPDHPUPDATE1 ---
History and Physical Update Update Date/Time: 01/24/25 06:55 History and Physical has been reviewed, including an updated exam of the patient. There are NO changes in the patient's condition. Risks, benefits, and alternatives have been discussed and questions answered. Patient agrees to proceed with procedure.
--- NOTE | 2025-01-24 08:24 | P.PNAN_ITS ---
Anes - Initial Pre Proc Eval Procedure: Operation Date: 01/24/25 10:15 Proposed Procedures p Trans Urethral Resection Bladder Tumor with Gemcitabine Instillation - Oswald Orozco MD Date/Time: 01/24/25 08:24 Surgeon: Oswald Orozco MD Pre Op Diagnosis: Bladder Ca Patient Data Age: 79 Gender: M Height: 1.78 m Weight: 92.99 kg Allergies Allergy/AdvReac Type Severity Reaction Status Date / Time No Known Allergies Allergy Verified 01/11/25 08:33 Home Medications ?Medication ?Instructions ?Recorded ?Confirmed ?Type aspirin 81 mg tablet,delayed 81 mg PO DAILY 10/10/19 01/11/25 History release (Adult Low Dose Aspirin) cholecalciferol (vitamin D3) 125 125 mcg PO DAILY 09/23/21 01/11/25 History mcg (5,000 unit) tablet esomeprazole magnesium 20 mg 20 mg PO DAILY 05/01/24 01/11/25 History capsule,delayed release (Nexium 24HR) finasteride 5 mg tablet 5 mg PO DAILY 05/01/24 01/11/25 History niacin 500 mg tablet 500 mg PO DAILY 05/01/24 01/11/25 History tamsulosin 0.4 mg capsule 0.4 mg PO DAILY 05/01/24 01/11/25 History atorvastatin 80 mg tablet See Rx Instructions .Route 11/09/24 01/11/25 Rx .COMPLEX #90 tabs ezetimibe 10 mg tablet 5 mg (1/2 x 10 mg) PO DAILY #90 11/09/24 01/11/25 Rx tabs Patient hx anesthesia problems: none Family hx anesthesia problems: none Results Review: All pre-operative results and documents have been reviewed as part of the pre- operative evaluation. [facility] Past Medical History Medical History History of bladder cancer Skin cancer Actinic keratoses History of basal cell carcinoma (BCC) High cholesterol Surgical History Surgical History History of arthroscopy of right shoulder arthroscopic debridement October 2019 History of rotator cuff surgery Bilateral - Dr Rene Social History Social History Smoking packs per day: 2 Smoking cigarettes per day: 40.0 Years smoked: 43 Smoking pack-years: 86.00 Smoking status: Former smoker Tobacco type: cigarettes Second hand tobacco smoke exposure: No Smoking end date: 02/12/90 Additional smoking assessment comments: Smoked for 30 years Alcohol intake: current Alcohol use details: Occasional Substance use: never Substance use type: does not use Lack of Transportation: No Lack of Food: Never True Current Housing: I Have Housing Concerned About Future Housing: No Difficulty Paying Gas/Electric Bills: No Difficulty Paying for Meds: No Currently Unemployed: No Education: High School Diploma/GED Difficulty w/ Childcare or Family Care: No Living arrangements: alone Occupation/Education: retired Gender identity (if verbalized by the patient): Male Spiritual care concerns: No Anes - Eval Final PreProcedure Day of Procedure 01/24/25 08:24 Patient weight: overweight Heart: regular rate and rhythm Lungs: clear to auscultation Airway: Mallampati scale class II Neurological: alert and oriented Last oral intake: >/= 8 hours ASA classification: III Emergent: no Anesthetic plan: proceed Anesthesia type and monitoring: general LMA and standard monitoring Results Review: All pre-operative results and documents have been reviewed as part of the pre- operative evaluation. Informed Consent: The patient's anesthetic plan and its attendant risks and benefits were discussed with the patient/family/POA. Questions were solicited and answers provided to the satisfaction of the patient/family/POA.
[2025-01-24] MEDS: LACTATED RINGERS 1,000 ML 30 ML IV CONT ×2 (08:25→10:06)
[2025-01-24] MEDS: ceFAZolin 2 GM/D5W 50 ML 2 GM/50 ML BAG IVPB (09:16)
[2025-01-24] MEDS: LIDOCAINE 2% GEL UROJET 10 ML PKG MUCOUS MEM (09:24)
--- NOTE | 2025-01-24 09:40 | S_PTH ---
PATIENT: Eriberto Rivera LOC: [facility] U#:[id number] AGE/SX: 79/M ROOM: RE01/24/[address]: Oswald Orozco MD : 1945 BED: DIS: 01/24/2025 SPEC #: [id number] RECD: 01/24/25 11:49 STATUS: PRIYA REQ #: [id number] [place]: 01/24/25 09:[address]: Oswald Orozco DEPT: [facility] Surgical RECD BY: Chaya Navarrete ENTERED: 01/24/25 11:49 SP TYPE: Surgical OTHR DR: Lonnie Luque, STEVE Tissues: A - Bladder Tumor B - Bladder Tumor Procedures: Hematoxylin and Eosin Stain Gross and Microscopic Level 4
--- NOTE | 2025-01-24 10:01 | W.PM.PROC2 ---
Procedure Note - Detailed Date of Procedure 01/24/25 Pre-op Diagnosis Bladder Ca Post-op Diagnosis Same Procedure Performed TURBT (large, 5cm)) Surgeon Oswald Orozco MD Anesthesia General Description of Procedure The patient was brought to the operative suite where he is prepped and draped in a routine sterile fashion while in the dorsal lithotomy position. This is done after the uneventful administration of systemic sedation. 2% Xylocaine jelly is introduced intraurethrally and allowed to stand for an appropriate period of time. A 24F resectoscope sheath was placed in the bladder and the bladder is circumferentially inspected carefully. 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 This area is resected in its entirety with an attempt made to include detrusor muscle for pathological evaluation of invasion. I sent seperate specimen from bladder tumor base. The base and periphery of this resected side is cauterized with a loop electrode. The bladder is emptied and the resectoscope was removed. The patient is taken to the recovery room having tolerated this procedure well. Estimated Blood Loss 0 Drains No Packing No Pathology Yes Complications No immediate complications Disposition PACU
--- NOTE | 2025-01-24 10:05 | W.PM.PROC2 ---
Procedure Note - Detailed Date of Procedure 01/24/25 Pre-op Diagnosis Bladder Ca Post-op Diagnosis Same Procedure Performed Gemcitabine instillation Surgeon Oswald Orozco MD Anesthesia General Description of Procedure With the patient in the supine position, a 16F Romero catheter is placed using sterile technique. Using a protective facemask, gown and double layer of gloves Gemcitabine 2gm in 100cc saline is administered through the catheter/into the bladder. The catheter is then plugged. Patient was instructed to lie supine x20min, then to roll both the left and right x20 min. each. Total dwell time will be 60 min., after which the bladder will be drained and catheter removed. Estimated Blood Loss 0 Drains No Packing No Pathology Yes Complications No immediate complications Condition Stable
[2025-01-24] MEDS: SODIUM CHLORIDE 0.9% IV 23.7 ML, GEMCITABINE HCL 1,000 MG BLADDER ×2 (10:25→10:26)
--- NOTE | 2025-01-24 12:51 | SUR.PHASEII ---
RN spoke w/ Dr. Orozco and he said since patient hasn't been able to urinate thus far it's okay to still discharge home.
== END 2025-01-24 13:08 | disposition home or self-care (01) ==
PROVIDERS: PCP Nurse Practitioner; Visit Provider Urology
PROC: 0TBB8ZZ Excision of Bladder, Via Natural or Artificial Opening Endoscopic (ICD-10-PCS; CPT 52235; principal; 2025-01-24 10:15)
DX: C67.2 Malignant neoplasm of lateral wall of bladder (principal); Z87.891 Personal history of nicotine dependence
CPT/HCPCS: 52235; 51720; 88305; J0690; J1100; J2003; J2405; J2704; J3010; J7120; J9201

== ENCOUNTER 2025-07-30 10:12 | Outpatient (CLI) | payer MEDICARE, SELFPAY ==
--- NOTE | ~2025-07-30 | PE_ITS ---
EXAMINATION: PET skull to mid thigh DATE: 07/30/2025 12:22 INDICATION: Lung nodule. Bladder cancer. TECHNIQUE: Blood glucose level was 106 mg/dL. 10.3 mCi of 18-fluorodeoxyglucose (18-FDG) was administered i.v. Low dose computed tomography (CT) images were acquired from the base of the brain to the proximal thighs for attenuation correction and anatomic localization. Positron emission tomography (PET) images were acquired in the same distribution beginning 66 minutes after injection. Images including fused PET/CT images were reconstructed in axial, coronal, and sagittal planes. Automated exposure control technique was employed. The dose- length product was 1007.51mGy-cm. COMPARISON: None FINDINGS: Head/neck: There is symmetric increased activity in the oral cavity, palatine tonsils and ocular muscles without CT correlate, likely physiologic. No pathologically enlarged cervical lymphadenopathy or suspicious foci of increased FDG uptake in the visualized head or neck. Chest: 1.8 cm probably FDG avid nodule at the posterior right lower lobe with maximal SUV of 9.8. Mild dependent atelectasis in both lungs. Arch size is normal. Atherosclerotic coronary artery calcifications. No pericardial or pleural effusion. Thoracic aorta is normal in caliber. Calcified right hilar lymph nodes consistent with old granulomatous disease. No pathologically enlarged or FDG avid thoracic lymphadenopathy. Abdomen/pelvis/proximal thighs: Physiologic renal accumulation and excretion of FDG activity in the kidneys, bladder and along portions of ureters. The bladder is decompressed around a Romero catheter. There is stranding in the surrounding fat suspicious for cystitis. Prostate is enlarged measuring 5.0 x 4.3 cm with increased FDG uptake along both the left and right posterior margins of the prostate with maximal SUV of 6.9 on the right and 6.0 on the left. Normal degree and heterogenous pattern of increased uptake throughout the liver without radiologic correlate or dominant FDG avid lesion. The gallbladder, pancreas, spleen and bilateral adrenal glands are normal. Mild uptake scattered throughout the bowels without radiologic correlate, also likely physiologic. No other abnormal foci of increased FDG uptake or pathologically enlarged lymphadenopathy in the abdomen, pelvis or proximal thighs. Musculoskeletal: Left total shoulder arthroplasty with likely reactive increased synovial uptake at the glenohumeral joint space. No suspicious lytic, blastic or abnormally FDG avid bone lesions. IMPRESSION: 1. Prominent increased FDG uptake associated with a 1.8 cm right lower lobe mass which is concerning for malignancy either primary or metastatic. 2. Prostatomegaly with increased FDG uptake on both the left and right posterior margins of the prostate which could be malignant or infectious/inflammatory in etiology. Correlate with PSA level. 3. Mild inflammatory stranding surrounding the bladder which is decompressed around a Romero catheter which is suspicious for cystitis. Correlate with urinalysis. Reviewed, dictated and finalized at location A. RMEDIATE PROJECT MANAGER IMPRESSION: 1. Prominent increased FDG uptake associated with a 1.8 cm right lower lobe mas s which is concerning for malignancy either primary or metastatic. 2. Prostatomegaly with increased FDG uptake on both the left and right posterio r margins of the prostate which could be malignant or infectious/inflammatory i n etiology. Correlate with PSA level. 3. Mild inflammatory stranding surrounding the bladder which is decompressed ar ound a Romero catheter which is suspicious for cystitis. Correlate with urinalys is.
--- OUTSIDE RECORDS SUMMARY | 2025-07-30 11:56 | XMS_ITS | Clinical Summary ---
Author Organization [facility] Address [address] [place] [address] Care Team Providers Care Cloth Roll Winder Name Role Phone Lonnie Luque NP Primary Care Provider [phone] Allergies No known active allergies Medications EZETIMIBE OR Take 5 mg by mouth daily. Active atorvastatin (LIPITOR) 80 MG tablet Take 1 tablet (80 mg total) by mouth daily. Active niacin CR (NIASPAN) 500 MG tablet Take 1 tablet (500 mg total) by mouth daily with supper. Active finasteride (PROSCAR) 5 MG tablet Take 1 tablet (5 mg total) by mouth daily. Active Vitamin D3 (CHOLECALCIFERO L) 50 mcg tablet Take 1 tablet (50 mcg total) by mouth daily. Active omeprazole (PRILOSEC) 20 MG capsule Take 1 capsule (20 mg total) by mouth daily. Active tamsulosin (FLOMAX) 0.4 MG Cap Take 1 capsule (0.4 mg total) by mouth nightly. Active aspirin 81 MG chewable tablet Chew 1 tablet (81 mg total) by mouth daily. Active Active Problems No known active problems Encounters Date Type Department Care Team Description 07/28/2025 5:48 AM [facility] - 07/28/2025 7:00 AM [facility] Emergency [facility] Emergency Room [address] [place] [address] Briana Perkins MD Urinary Catheter Problem Discharge Disposition: Home or Self Care (Routine Discharge) 07/28/2025 Travel 07/27/2025 10:24 PM COMPUTER SCIENCE INSTRUCTOR - 07/27/2025 11:38 PM COMPUTER SCIENCE INSTRUCTOR Emergency [facility] Emergency Room [address] [place] [address] Briana Perkins MD Urinary Catheter Problem Discharge Disposition: Home or Self Care (Routine Discharge) 07/25/2025 1:24 PM COMPUTER SCIENCE INSTRUCTOR Anesthesia Event [facility] [place] [address] MD Jackson, Samantha Rae, FNP 07/25/2025 12:25 PM COMPUTER SCIENCE INSTRUCTOR - 07/25/2025 1:48 PM COMPUTER SCIENCE INSTRUCTOR Surgery [facility] [place] [address] Kailash Garrett MD CYSTOSCOPY WITH RIGHT URETEROSCOPY WITH RIGHT RETROGRADE PYELOGRAM 07/25/2025 10:21 AM COMPUTER SCIENCE INSTRUCTOR - 07/25/2025 4:10 PM COMPUTER SCIENCE INSTRUCTOR Hospital Encounter [facility] [place] [address] Kailash Garrett MD Discharge Disposition: Home or Self Care (Routine Discharge) 07/25/2025 Travel 07/19/2025 2:40 PM COMPUTER SCIENCE INSTRUCTOR - 07/19/2025 11:59 PM COMPUTER SCIENCE INSTRUCTOR Hospital Encounter [address] [address] Kailash Garrett MD Discharge Disposition: Home or Self Care (Routine Discharge) 07/19/2025 Prep for Procedure [address] [address] Kailash Garrett MD 07/19/2025 Travel from Last 3 Months Immunizations Immunization Administration Dates Next Due MODERNA COVID-19 (12+) MRNA, LNP-S, PF, 100 MCG/ 0.5 ML DOSE 10/10/2020,09/12/2020 Social History Tobacco Use Types Packs/Day Years Used Date Smoking Tobacco: Former Cigarettes 1 27 1 963 - 1989 Smokeless Tobacco: Never Tobacco Cessation:Counseling Given: Not Answered Alcohol Use Standard Drinks/Week Comments Not Currently 0 (1 standard drink = 0.6 oz pur e alcohol) Sex and Gender Information Value Date Recorded Sex Assigned at Male 07/25/2025 10:20 AM COMPUTER SCIENCE INSTRUCTOR Legal Sex Male 6:00 PM CDT Gender Identity Not on file Sexual Orientation Not on file Last Filed Vital Signs Vital Sign Reading Time Taken Comments Blood Pressure 173/79 07/28/2025 5:56 AM COMPUTER SCIENCE INSTRUCTOR Pulse 71 07/28/2025 5:56 AM COMPUTER SCIENCE INSTRUCTOR Temperature 36.6 C (97.8 F) 07/28/2025 5:56 AM COMPUTER SCIENCE INSTRUCTOR Respiratory Rate 16 07/28/2025 5:56 AM COMPUTER SCIENCE INSTRUCTOR Oxygen Saturation 94% 07/28/2025 5:53 AM COMPUTER SCIENCE INSTRUCTOR Inhaled Oxygen Concentration - - Weight 88 kg (194 lb) 07/28/2025 5:53 AM COMPUTER SCIENCE INSTRUCTOR Height 177.8 cm (5' 10) 07/28/2025 5:53 AM COMPUTER SCIENCE INSTRUCTOR Body Mass Index 27.84 07/28/2025 5:53 AM COMPUTER SCIENCE INSTRUCTOR Plan of Treatment Health Maintenance Due Date Last Done Comments Annual Medicare Wellness Visit 2008 RSV Immunization or 60+ Years (1 - 1-dose 75+ series) 2018 COVID-19 Vaccine ( season) 2025 06/12/2022, 10/10/2020, 09/12/2020 Influenza Adult (#1) 2025 06/12/2022, 05/04/2020, 05/17/2019, Additional history exists DTaP, Tdap and Td Vaccines (2 - Td or Tdap) 03/26/2027 03/26/2017 Pneumococcal Vaccine: 50+ Years Completed 03/26/2017, 09/02/2016 Zoster Vaccines Completed 08/20/2021, 04/18/2021 Hepatitis A Vaccines Aged Out No long er eligible based on patient's age to complete this topic Meningococcal B Vaccine Aged Out No l onger eligible based on patient's age to complete this topic Meningococcal Vaccine Aged Out No perez rosalio eligible based on patient's age to complete this topic RSV Immunizations Under 20 Months Aged Out No longer eligible based on patient's age to complete this topic Procedures Procedure Name Priority Date/Time Associated Diagnosis Comments SURG XR RETROGRD UROGRAPHY Routine 07/25/2025 1:56 PM COMPUTER SCIENCE INSTRUCTOR CYSTOURETHROSCOPY ,FULGUR .5-2CM LESN 07/25/2025 1:24 PM COMPUTER SCIENCE INSTRUCTOR MALIGNANT NEOPLASM OF POSTERIOR WALL OF URINARY BLADDER C67.4, N13.30 Case Notes SCHED BY FAX 07/02/2025 [facility] PHONE ASSESS Special Needs REQUESTED 30 MINUTES CYSTO/URETERO/SHELDON LOSCOPY, DX 07/25/2025 1:24 PM COMPUTER SCIENCE INSTRUCTOR MALIGNANT NEOPLASM OF POSTERIOR WALL OF URINARY BLADDER C67.4, N13.30 Case Notes SCHED BY FAX 07/02/2025 LCS PHONE ASSESS Special Needs REQUESTED 30 MINUTES PATHOLOGY Routine 07/25/2025 12:00 AM COMPUTER SCIENCE INSTRUCTOR URINE BACTERIA CULTURE Routine 07/19/2025 2:52 PM COMPUTER SCIENCE INSTRUCTOR Malignant neoplasm of posterior wall of urinary bladder (CMS/HCC HHS/HCC) Hydronephrosis Microscopic hematuria from Last 3 Months Results * SURG XR RETROGRD UROGRAPHY (07/25/2025 1:56 PM COMPUTER SCIENCE INSTRUCTOR) Anatomical Region Laterality Modality Abdomen Radiographic Shalonda ging 07/25/2025 3:50 PM COMPUTER SCIENCE INSTRUCTOR Impressions 07/25/2025 3:50 PM COMPUTER SCIENCE INSTRUCTOR Impression: No radiologic interpretation will be issued. The report and documentation of this exam will reside in the patient's permanent medical record and in the attending physician's procedure note. Ordered By: KAILASH GARRETT Interpreted By: Daniel Santiago MD, 07/25/2025 3:50 PM Narrative 07/25/2025 3:50 PM COMPUTER SCIENCE INSTRUCTOR [address] [address] FLUOROSCOPY CONTROL ONLY Procedure Note Daniel Santiago MD - 07/25/[address] [address] FLUOROSCOPY CONTROL ONLY Impression: No radiologic interpretation will be issued. The report and documentationof this exam will reside in the patient's permanent medical record and inthe attending physician's procedure note. Ordered By: KAILASH GARRETT Interpreted By: Daniel Santiago MD, 07/25/2025 3:50 PM us Kailash Garrett MD IMAGES ONLY Final Result * Pathology (07/25/2025 12:00 AM COMPUTER SCIENCE INSTRUCTOR) PATHOLOGY [facility] Department of Laboratory Medicine [address] [place] [address] , extension [phone] Pathology Report Surgical Pathology Report Name: THERESA RIVERA Specimen #: [id number] Age: 8 1945 (Age: 80) Location: [facility] Sex: M Procedure Date: 07/25/2025 Hospital #: [id number] Date Received: 07/26/2025 Date Reported: 07/29/2025 Provider: KAILASH GARRETT MD Source: Bladder tumor, TUR Clinical History: Malignant neoplasm of posterior wall of urinary bladder FINAL DIAGNOSIS: Bladder tumor, transurethral resection: - Noninvasive papillary urothelial carcinoma, high-grade. - Definite muscularis propria is not identified. Gross Description: Received in formalin, labeled with a patient label and as tumor, is a 2.8 x 1.8 x 1.6 cm aggregate of white-orellana to pink-orellana soft tissue fragments. The specimen is entirely submitted in cassettes 1-4. Gross examination (when applicable), interpretation, and sign out were performed at [facility], [address] [place] [address]. Electronically Signed Out DEBRA HUYNH MD [facility] TISSUE URINARY BLADDER STRUCTURE / Unknown 07/25/2025 2:06 PM COMPUTER SCIENCE INSTRUCTOR us Kailash Garrett MD PATHOLOGY/CYTOLOGY ORDERABLES F inal Result [facility] [address] [place] [address], [place] [phone] [id number] * URINE BACTERIA CULTURE (07/19/2025 2:52 PM COMPUTER SCIENCE INSTRUCTOR) SPEC DESCRIPTION URINE CLEAN CATCH 07/19/2025 2:53 PM COMPUTER SCIENCE INSTRUCTOR [facility] SPECIAL REQUESTS NO SPECIAL REQUEST 07/19/2025 2:53 PM COMPUTER SCIENCE INSTRUCTOR [facility] CULTURE RESULT NO GROWTH 2 DAYS 07/21/2025 8:51 AM COMPUTER SCIENCE INSTRUCTOR [facility] URINE URINE SPECIMEN OBTAINED BY CLEAN CATCH PROCEDURE / Unknown 07/19/2025 2:52 PM COMPUTER SCIENCE INSTRUCTOR 07/19/2025 2:53 PM COMPUTER SCIENCE INSTRUCTOR Kailash Garrett MD MICROBIOLOGY - GENERAL ORDERABL ES Final Result Performing Organization Address [facility] Co de Phone Number [facility] [address] [place] [address], [place] [phone] [facility] [address] [place] [address], [place] [phone] from Last 3 [place] [address] UHC MEDICARE Care Teams Cloth Roll Winder Relationship Specialty Start Date End Date Lonnie Luque NP PCP - General NURSE PRACTITIONER 01/28/23
--- OUTSIDE RECORDS SUMMARY | 2025-07-30 11:56 | XMS_ITS | Clinical Summary ---
Author Organization [facility] Address [address] [place] [id number] Care Team Providers Care Drawbridge Tender Name Role Phone Henry Ho DO Primary Care Provider [phone] Allergies No known active allergies Medications atorvastatin [...] (09/19/2020): Added automatically from request for surgery [id number] HLD (hyperlipidemia) 06/10/2020 Risk factors for obstructive sleep apnea 020 Complete tear of left rotator cuff 05/14/2020 Overview (05/14/2020): Added automatically from request for surgery [id number] Immunizations Immunization Administration Dates Next Due Influenza, [...] on file Legal Sex Male 7:03 PM RN INTERN Gender Identity Not on file Sexual Orientation Not on file Last Filed Vital Signs Vital Sign Reading Time Taken Comments Blood Pressure 150/78 09/29/2020 11:30 AM RN INTERN Pulse 88 09/29/2020 11:40 AM RN INTERN Temperature 36.5 C (97.7 F) 09/29/2020 11:35 AM RN INTERN Respiratory Rate 21 09/29/2020 11:40 AM RN INTERN Oxygen Saturation 96% 09/29/2020 11:40 AM RN INTERN Inhaled Oxygen Concentration - - Weight 95.3 kg (210 lb) 11/18/2020 10:21 AM CDT Height 177.8 cm (5' 10) 11/18/2020 10:21 AM CDT Body Mass Index 30.13 11/18/2020 10:21 AM CDT Plan of Treatment Not on file Medical Devices Implanted Type Area Player Development Manager Device Identifier Shelf Expiration Date Model / Serial / Lot [employer] [id number] 25mm Reverse Shoulder Baseplate Glenoid Trabecular Metal - [id number] Implanted:Qty: 1 on 06/12/2020 by Billy Jones MD at [facility] Left: Shoulder [employer] [id number] 02/11/2030 [id number] / / [id number] [employer] [id number] 40mm Reverse Shoulder Sphere Glenoid Trabecular Metal - [id number] Implanted:Qty: 1 on 06/12/2020 by Billy Jones MD at [facility] Left: Shoulder [employer] [id number] 03/14/2030 [id number] / / [id number] [employer] .042 Ncb Anatomical Shoulder 4.5mm 42mm Inverse Reverse Lock Self Tap - [id number] Implanted:Qty: 1 on 06/12/2020 by Billy Jones MD at [facility] Left: Shoulder [employer] [id number] 10/12/2024 01.25506.042 / / [id number] [employer] .51743.048 Ncb Anatomical Shoulder 4.5mm 48mm Inverse Reverse Lock Self Tap - [id number] Implanted:Qty: 1 on 06/12/2020 by Billy Jones MD at [facility] Left: Shoulder [employer] [id number] 04/14/2024.18691.048 / / [id number] [employer] [id number] 14mm 130mm Shoulder Stem Humeral Trabecular Metal Tivanium - [id number] Implanted:Qty: 1 on 06/12/2020 by Billy Jones MD at [facility] Left: Shoulder [employer] [id number] 04/02/2030 [id number] / / [id number] [employer] [id number] 40mm H+0mm Reverse Humerus 7d Standard Liner Shoulder Trabecular - [id number] Implanted:Qty: 1 on 06/12/2020 by Billy Jones MD at [facility] Left: Shoulder [employer] [id number] 10/12/2025 [id number] / / [id number] Insurance [employer] MEDICARE [facility] MEDICARE UHC MEDICARE ADVANTAGE Advance Directives For more information, please contact: [phone] * Full Code (Latest Code Status on File) Date Activated Date Inactivated Comments 06/12/2020 12:16 PM 06/13/2020 4:40 PM Care Teams Drawbridge Tender Relationship Specialty Start Date End Date Henry Ho DO PCP - General Internal Medicine 08/19/20
== END 2025-07-30 10:13 | disposition home or self-care (01) ==
PROVIDERS: PCP Nurse Practitioner; Visit Provider Urology
DX: R91.1 Solitary pulmonary nodule (principal); N40.0 Benign prostatic hyperplasia without lower urinary tract symptoms
CPT/HCPCS: 78815; A9552